=== PATIENT | female | born 1990 | race Caucasian/White ===

== ENCOUNTER 2019-10-25 01:12 | Inpatient (IN) | payer OTHER ==
[2019-10-25] MEDS ORDERED: Sodium Chloride 0.9% 2.5 ML Syringe FLUSH PRN ×2 (01:33→09:49)
[2019-10-25] MEDS ORDERED: Misoprostol 200 MCG Tab PO PRN (01:33)
[2019-10-25] MEDS ORDERED: Water For Irrigation,Sterile 1,000 ML Container IRR PRN (01:33)
[2019-10-25] MEDS ORDERED: Butorphanol 1 MG/ML SDV IVPUSH PRN (01:33)
[2019-10-25] MEDS ORDERED: Methylergonovine 0.2 MG/1 ML Amp IM PRN (01:33)
[2019-10-25] MEDS ORDERED: Sodium Chloride 0.9% 10 ML Syringe FLUSH PRN ×2 (01:33→09:49)
[2019-10-25] MEDS ORDERED: Lidocaine 1% 50 ML MDV INJECT PRN (01:33)
[2019-10-25] MEDS ORDERED: Ondansetron 4 MG/2 ML SDV IVPUSH PRN (01:33)
[2019-10-25] MEDS ORDERED: Nalbuphine 10 MG/1 ML Vial IVPUSH PRN (01:33)
[2019-10-25] MEDS ORDERED: Carboprost Tromethamine 250 MCG/1 ML Amp IM PRN (01:33)
[2019-10-25] MEDS ORDERED: Sodium Chloride 0.9% 10 ML SDV IV PRN ×2 (01:33→09:49)
[2019-10-25] MEDS ORDERED: Tranexamic Acid 1,000 MG in Sodium Chloride 0.9% 100 ML IV PRN (01:33)
[2019-10-25] MEDS ORDERED: Lactated Ringers 1,000 ML IV SCH (01:45)
[2019-10-25] MEDS ORDERED: Oxytocin/0.9 % Sodium Chloride 30 UNIT/500 ML BAG IV SCH ×2 (01:45→03:45)
[2019-10-25] MEDS ORDERED: Bupivicaine/fentaNYL/NS 250 ML ONE (03:03)
--- NOTE | 2019-10-25 03:53 | PCM.PREANE ---
Preanesthetic Assessment - Procedure Proposed Procedure: Continuous Labor Epidural - Anesthesia/Transfusion/Family Hx Anesthesia History: Prior Anesthesia Without Reaction Transfusion History: No Prior Transfusion(s) - Review of Systems General: No Symptoms Pulmonary: No Symptoms Cardiovascular: No Symptoms Gastrointestinal: No Symptoms Neurological: No Symptoms Other: Reports: None - Physical Assessment Height: 5 ft 9 in Weight: 113.398 kg ASA Class: 2 Mental Status: Alert & Oriented x3 Airway Class: Mallampati = 1 Dentition: Reports: Normal Dentition Thyro-Mental Finger Breadths: 3 Mouth Opening Finger Breadths: 3 ROM/Head Extension: Full Lungs: Clear to Auscultation, Normal Respiratory Effort Cardiovascular: Regular Rate, Regular Rhythm - Lab Values: Laboratory Last Values WBC 7.00 K/uL (4.0-11.0) 10/25/19 02:00 RBC 3.92 M/uL (4.30-5.90) L 10/25/19 02:00 Hgb 11.6 g/dL (12.0-16.0) L 10/25/19 02:00 Hct 34.3 % (36.0-46.0) L 10/25/19 02:00 MCV 87.5 fL (80.0-98.0) 10/25/19 02:00 MCH 29.6 pg (27.0-32.0) 10/25/19 02:00 MCHC 33.8 g/dL (31.0-37.0) 10/25/19 02:00 RDW Std Deviation 43.7 fl (28.0-62.0) 10/25/19 02:00 RDW Coeff of Yissel 14 % (11.0-15.0) 10/25/19 02:00 Plt Count 111 K/uL (150-400) L 10/25/19 02:00 MPV 10.30 fL (7.40-12.00) 10/25/19 02:00 Nucleated RBC % 0.0 /100WBC 10/25/19 02:00 Nucleated RBCs # 0 K/uL 10/25/19 02:00 Blood Type A POSITIVE 10/25/19 02:00 Antibody Screen NEGATIVE 10/25/19 02:00 - Allergies Allergies/Adverse Reactions: Allergies Allergy/AdvReac Type Severity Reaction Status Date / Time sulfamethoxazole Allergy Hives Verified 10/25/19 01:32 [From ] trimethoprim [From ] Allergy Hives Verified 10/25/19 01:32 - Anesthesia Plan Free Text/Narrative:: Continuous Labor Epidural - Acknowledgements Anesthesia Type Planned: Epidural Pt an Appropriate Candidate for the Planned Anesthesia: Yes Alternatives and Risks of Anesthesia Discussed w Pt/Guardian: Yes Pt/Guardian Understands and Agrees with Anesthesia Plan: Yes PreAnesthesia Questionnaire HEENT History: Reports: None Cardiovascular History: Reports: None Respiratory History: Reports: None Other Gastrointestinal History: Some heartburn with Genitourinary History: Reports: None FOURTH OFFICER History: Reports: : 9 Para: 3 LMP (Approximate): Other OB/BYN History: Patient taking a Baby Aspirin 81 mg daily during this . Musculoskeletal History: Reports: None Neurological History: Reports: None Psychiatric History: Reports: None Endocrine/Metabolic History: Reports: Diabetes, Gestational Other Endocrine/Metabolic History: History of gestational Diabetes, None with this Hematologic History: Reports: None Immunologic History: Reports: None Oncologic (Cancer) History: Reports: None Dermatologic History: Reports: None - Infectious Disease History Infectious Disease History: Reports: Chicken Pox - Past Surgical History HEENT Surgical History: Reports: Oral Surgery, Tonsillectomy Other HEENT Surgeries/Procedures: wisdome teeth - SUBSTANCE USE Smoking Status *Q: Never Smoker Recreational Drug Use History: No - CURRENT (IN HOUSE) MEDS Current Meds: Current Medications Butorphanol Tartrate (Stadol) 1 mg IVPUSH Q1H PRN PRN Reason: Pain Carboprost Tromethamine (Hemabate Ds) 250 mcg IM ASDIRECTED PRN PRN Reason: Post Hemorrhage Lactated Ringer's (Ringers, Lactated) 1,000 mls @ 150 mls/hr IV ASDIRECTED MARVIN Last Admin: 10/25/19 02:43 Dose: 999 mls/hr Oxytocin/Sodium Chloride (Oxytocin 30 Unit/500 Ml-Ns) 30 unit in 500 mls @ 999 mls/hr IV TITRATE MARVIN Tranexamic Acid 1,000 mg/ (Sodium Chloride) 110 mls @ 660 mls/hr IV ONETIME PRN PRN Reason: Bleeding Lidocaine HCl (Xylocaine 1%) 50 ml INJECT ONETIME PRN PRN Reason: Laceration repair Methylergonovine Maleate (Methergine) 0.2 mg IM ASDIRECTED PRN PRN Reason: Post Hemorrhage Misoprostol (Cytotec) 200 mcg PO ONETIME PRN PRN Reason: Post Hemorrhage Nalbuphine HCl (Nubain) 10 mg IVPUSH Q1H PRN PRN Reason: Pain (severe 7-10) Ondansetron HCl (Zofran) 4 mg IVPUSH Q4H PRN PRN Reason: Nausea/Vomiting Sodium Chloride (Saline Flush) 10 ml FLUSH ASDIRECTED PRN PRN Reason: Keep Vein Open Sodium Chloride (Saline Flush) 2.5 ml FLUSH ASDIRECTED PRN PRN Reason: Keep Vein Open Sodium Chloride (Normal Saline) 10 ml IV ASDIRECTED PRN PRN Reason: IV Use Sterile Water (Sterile Water For Irrigation) 1,000 ml IRR ASDIRECTED PRN PRN Reason: delivery Discontinued Medications Fentanyl/Bupivacaine HCl (Fentanyl/Bupivacaine/Ns 2 Mcg-0.125% 250 Ml) Confirm Administered Dose 250 mls @ as directed .ROUTE .[facility] ONE Stop: 10/25/19 03:04
[2019-10-25 08:00] LABS: BLOOD UREA NITROGEN,BUN 8 mg/dL (7.0-18.0); CARBON DIOXIDE,CO2 21.2 mmol/L (21.0-32.0); CHLORIDE,CL 107 mmol/L (98-107); GLUCOSE RANDOM 118 mg/dL (74-106); POTASSIUM,K 3.2 mmol/L (3.5-5.1); SODIUM,NA 140 mmol/L (136-145)
[2019-10-25] MEDS ORDERED: Bupivacaine 0.5% 10 ML SDV ONE (08:02)
[2019-10-25] MEDS ORDERED: Calcium Gluconate 10% 1 GM/10 ML SDV IV PRN (09:49)
[2019-10-25] MEDS ORDERED: Magnesium Sulfate/Water 4 GM in Premix Bag 1 BAG IV ONE (09:49)
[2019-10-25] MEDS ORDERED: Labetalol 100 MG/20 ML MDV IVPUSH PRN (10:38)
[2019-10-25] MEDS: Magnesium Sulfate/Water 20 GM/500 ML BAG IV SCH ×2 (10:40→20:31)
[2019-10-25] MEDS ORDERED: Bisacodyl 10 MG Supp RECTAL PRN (11:10)
[2019-10-25] MEDS ORDERED: Ibuprofen 400 MG Tab PO PRN (11:10)
[2019-10-25] MEDS ORDERED: oxyCODONE 5 MG Tab PO PRN (11:10)
[2019-10-25] MEDS ORDERED: Acetaminophen 500 MG Tab PO PRN (11:10)
[2019-10-25] MEDS ORDERED: Witch Hazel Medicated Pads 40/Jar TOP PRN (11:10)
[2019-10-25] MEDS ORDERED: Lanolin 100% Cream 7 GM Tube TOP PRN (11:10)
[2019-10-25] MEDS ORDERED: Hydrocortisone 2.5% Crm 30 GM Tube TOP PRN (11:10)
[2019-10-25] MEDS ORDERED: Aluminum Hydroxide/Magnesium Hydroxide/Simethicone Susp 30 ML Cup PO PRN (11:10)
[2019-10-25] MEDS ORDERED: Benzocaine/Menthol 20%-0.5% Spray 78 GM Cannister TOP PRN (11:10)
--- NOTE | 2019-10-25 11:20 | PCM.OPNOTE ---
- General Post-Op/Procedure Note Date of Surgery/Procedure: 10/25/19 Operative Procedure(s): /1st MLL repaired Findings: Viable female APGARs 8, 9 weight 4140 gm. Spontaneous delivery intact placenta with 3V cord. True knot in cord Pre Op Diagnosis: 39/2 week IUP, SROM. HELLP syndrome Post-Op Diagnosis: Same Anesthesia Technique: Epidural Primary Surgeon: Danii Pike EBL in mLs: 300 Complications: none known Condition: Stable Free Text/Narrative:: Dictation [id number]
[2019-10-25] MEDS: Ibuprofen 800 MG Tab PO PRN ×2 (11:49→23:40)
[2019-10-25] MEDS: Acetaminophen 500 MG Tab PO PRN (16:21)
[2019-10-26] MEDS: Acetaminophen 500 MG Tab PO PRN ×2 (04:28→16:22)
[2019-10-26] MEDS: Magnesium Sulfate/Water 20 GM/500 ML BAG IV SCH (06:35)
--- NOTE | 2019-10-26 08:48 | PCM.PNPP ---
- General Info Date of Service: 10/26/19 Functional Status: Reports: Pain Controlled, Tolerating Diet, Urinating - Review of Systems General: Reports: Fatigue. Denies: Fever, Weakness Pulmonary: Denies: Shortness of Breath, Pleuritic Chest Pain Cardiovascular: Denies: Chest Pain, Palpitations, Lightheadedness Gastrointestinal: Denies: Abdominal Pain, Nausea, Vomiting Genitourinary: Denies: Flank Pain Musculoskeletal: Reports: Neck Pain (left occipital--usual region she has tension) Skin: Reports: No Symptoms Neurological: Reports: Headache (left eye pressure, left occipital--usual for her, tension). Denies: Numbness, Paresthesia, Seizure, Trouble Speaking, Difficulty Walking - General Info Date of Service: 10/26/19 - Patient Data Vital Signs - Most Recent: Last Vital Signs Temp 36.3 C 10/26/19 04:00 Pulse 76 10/26/19 04:00 Resp 16 10/26/19 04:00 BP 145/87 H 10/26/19 04:00 Pulse Ox 97 10/26/19 04:00 Weight - Most Recent: 107.547 kg I&O - Last 24 Hours: Intake & Output 10/25/19 10/26/19 10/26/19 22:59 06:59 14:59 Intake Total 720 Output Total 2800 300 Balance -2080 -300 Lab Results - Last 24 Hours: Laboratory Results - last 24 hr 10/25/19 10/25/19 10/25/19 Range/Units 10:51 11:05 14:10 WBC (4.0-11.0) K/uL RBC (4.30-5.90) M/uL Hgb (12.0-16.0) g/dL Hct (36.0-46.0) % MCV (80.0-98.0) fL MCH (27.0-32.0) pg MCHC (31.0-37.0) g/dL RDW Std Deviation (28.0-62.0) fl RDW Coeff of Yissel (11.0-15.0) % Plt Count (150-400) K/uL MPV (7.40-12.00) fL Nucleated RBC % /100WBC Nucleated RBCs # K/uL Cord ABG pH 7.180 (7.18-7.38) Cord ABG Base Excess -6 (-10--2) Cord VBG pH 7.312 (7.25-7.45) Cord VBG Base Excess -6 (-10--2) Magnesium 3.7 H (1.8-2.4) mg/dL Ur Random Creatinine 126.1 mg/dL U Random Total Protein 42.4 H (<11.9) mg/dL Protein/Creatinin Ratio 0.3 10/25/19 10/26/19 10/26/19 Range/Units 20:03 02:14 08:25 WBC 9.28 (4.0-11.0) K/uL RBC 3.97 L (4.30-5.90) M/uL Hgb 11.6 L (12.0-16.0) g/dL Hct 35.1 L (36.0-46.0) % MCV 88.4 (80.0-98.0) fL MCH 29.2 (27.0-32.0) pg MCHC 33.0 (31.0-37.0) g/dL RDW Std Deviation 45.2 (28.0-62.0) fl RDW Coeff of Yissel 14 (11.0-15.0) % Plt Count 124 L (150-400) K/uL MPV 10.10 (7.40-12.00) fL Nucleated RBC % 0.0 /100WBC Nucleated RBCs # 0 K/uL Cord ABG pH (7.18-7.38) Cord ABG Base Excess (-10--2) Cord VBG pH (7.25-7.45) Cord VBG Base Excess (-10--2) Magnesium 4.5 H 4.8 H (1.8-2.4) mg/dL Ur Random Creatinine mg/dL U Random Total Protein (<11.9) mg/dL Protein/Creatinin Ratio Med Orders - Current: Current Medications Acetaminophen (Tylenol Extra Strength) 500 mg PO Q4H PRN PRN Reason: Pain Acetaminophen (Tylenol Extra Strength) 1,000 mg PO Q4H PRN PRN Reason: Pain Last Admin: 10/26/19 04:28 Dose: 1,000 mg Al Hydroxide/Mg Hydroxide (Mag-Al Plus) 30 ml PO Q8H PRN PRN Reason: Heartburn Benzocaine/Menthol (Dermoplast Pain Relief 20%-0.5% [place]) 78 gm TOP ASDIRECTED PRN PRN Reason: Perineal Comfort Measure Last Admin: 10/25/19 19:21 Dose: 1 canister Bisacodyl (Dulcolax) 10 mg RECTAL ONETIME PRN PRN Reason: Constipation Calcium Gluconate (Calcium Gluconate) 1 gm IV ASDIRECTED PRN PRN Reason: respiratory distress Carboprost Tromethamine (Hemabate Ds) 250 mcg IM ASDIRECTED PRN PRN Reason: Post Hemorrhage Docusate Sodium (Colace) 100 mg PO BID PRN PRN Reason: Constipation Emollient Ointment (Lansinoh Hpa) 0 gm TOP ASDIRECTED PRN PRN Reason: Sore Nipples Hydrocortisone (Proctozone-Hc 2.5% Crm) 1 gm TOP 6XDAY PRN PRN Reason: Itching Last Admin: 10/25/19 19:20 Dose: 1 tube Lactated Ringer's (Ringers, Lactated) 1,000 mls @ 150 mls/hr IV ASDIRECTED MARVIN Last Admin: 10/25/19 02:43 Dose: 999 mls/hr Oxytocin/Sodium Chloride (Oxytocin 30 Unit/500 Ml-Ns) 30 unit in 500 mls @ 999 mls/hr IV TITRATE MARVIN Tranexamic Acid 1,000 mg/ (Sodium Chloride) 110 mls @ 660 mls/hr IV ONETIME PRN PRN Reason: Bleeding Oxytocin/Sodium Chloride (Oxytocin 30 Unit/500 Ml-Ns) 30 unit in 500 mls @ 2 mls/hr IV TITRATE MARVIN; Protocol Last Infusion: 10/25/19 10:52 Dose: 500 munits/min, 500 mls/hr Magnesium Sulfate (Magnesium Sulfate In Water Premix) 20 gm in 500 mls @ 50 mls /hr IV ASDIRECTED MARVIN Last Admin: 10/26/19 06:35 Dose: 2 gm/hr, 50 mls/hr Ibuprofen (Motrin) 400 mg PO Q4H PRN PRN Reason: Pain Ibuprofen (Motrin) 800 mg PO Q6H PRN PRN Reason: Pain Last Admin: 10/25/19 23:40 Dose: 800 mg Labetalol HCl (Normodyne) 20 mg IVPUSH Q10M PRN; Protocol PRN Reason: Hypertension Lidocaine HCl (Xylocaine 1%) 50 ml INJECT ONETIME PRN PRN Reason: Laceration repair Ondansetron HCl (Zofran) 4 mg IVPUSH Q4H PRN PRN Reason: Nausea/Vomiting Oxycodone HCl (Oxycodone) 5 mg PO Q2H PRN PRN Reason: Pain Sodium Chloride (Saline Flush) 10 ml FLUSH ASDIRECTED PRN PRN Reason: Keep Vein Open Sodium Chloride (Saline Flush) 2.5 ml FLUSH ASDIRECTED PRN PRN Reason: Keep Vein Open Sodium Chloride (Normal Saline) 10 ml IV ASDIRECTED PRN PRN Reason: IV Use Sodium Chloride (Saline Flush) 10 ml FLUSH ASDIRECTED PRN PRN Reason: Keep Vein Open Sodium Chloride (Saline Flush) 2.5 ml FLUSH ASDIRECTED PRN PRN Reason: Keep Vein Open Sodium Chloride (Normal Saline) 10 ml IV ASDIRECTED PRN PRN Reason: IV Use Sterile Water (Sterile Water For Irrigation) 1,000 ml IRR ASDIRECTED PRN PRN Reason: delivery Avelino Jose (Tucks) 1 pad TOP ASDIRECTED PRN PRN Reason: comfort care Last Admin: 10/25/19 19:21 Dose: 1 container Discontinued Medications Bupivacaine HCl (Sensorcaine-Mpf 0.5%) Confirm Administered Dose 10 ml .ROUTE .STK-MED ONE Stop: 10/25/19 08:03 Last Admin: 10/25/19 20:17 Dose: Not Given Butorphanol Tartrate (Stadol) 1 mg IVPUSH Q1H PRN PRN Reason: Pain Fentanyl/Bupivacaine HCl (Fentanyl/Bupivacaine/Ns 2 Mcg-0.125% 250 Ml) Confirm Administered Dose 250 mls @ as directed .ROUTE .STK-MED ONE Stop: 10/25/19 03:04 Last Admin: 10/25/19 20:17 Dose: Not Given Magnesium Sulfate 4 gm/ Premix 100 mls @ 300 mls/hr IV BOLUS ONE Stop: 10/25/19 10:08 Last Admin: 10/25/19 10:20 Dose: 300 mls/hr Methylergonovine Maleate (Methergine) 0.2 mg IM ASDIRECTED PRN PRN Reason: Post Hemorrhage Misoprostol (Cytotec) 200 mcg PO ONETIME PRN PRN Reason: Post Hemorrhage Nalbuphine HCl (Nubain) 10 mg IVPUSH Q1H PRN PRN Reason: Pain (severe 7-10) - Infant Interaction Support Person: - Recovery Exam Fundal Tone: Firm Fundal Level: 1 Fingerbreadths Below Umbilicus Fundal Placement: Midline Lochia Amount: Scant Lochia Color: Rubra/Red Perineum Description: Intact, Minimal Bruising/Swelling, Other (see below) Other Perinuem Description: 1st degree laceration Episiotomy/Laceration: Approximated Bladder Status: Voiding Urinary Elimination: Voided - Exam General: Alert, Oriented HEENT: Pupils Equal, Mucous Membr. Moist/Decker Neck: Supple Lungs: Clear to Auscultation, Normal Respiratory Effort Cardiovascular: Regular Rate, Regular Rhythm GI/Abdominal Exam: Normal Bowel Sounds, Soft. No: Guarding, Rigid Extremities: Pedal Edema (trace). No: Kd's Sign Skin: Warm, Dry, Intact Neurological: No New Focal Deficit Psy/Mental Status: Alert, Normal Affect, Normal Mood - Problem List & Annotations (1) Vaginal delivery SNOMED Code(s): 984103482 Code(s): O80 - ENCOUNTER FOR FULL-TERM UNCOMPLICATED DELIVERY Status: Acute Current Visit: Yes (2) HELLP syndrome SNOMED Code(s): 06675693 Code(s): O14.20 - HELLP SYNDROME (HELLP), UNSPECIFIED TRIMESTER Status: Acute Current Visit: Yes Qualifiers: Trimester: third trimester Qualified Code(s): O14.23 - HELLP syndrome ( HELLP), third trimester - Problem List Review Problem List Initiated/Reviewed/Updated: Yes - My Orders Last 24 Hours: My Active Orders 10/25/19 09:49 Calcium Gluconate 1 gm IV ASDIRECTED PRN Sodium Chloride 0.9% [Normal Saline] 10 ml IV ASDIRECTED PRN Sodium Chloride 0.9% [Saline Flush] 10 ml FLUSH ASDIRECTED PRN Sodium Chloride 0.9% [Saline Flush] 2.5 ml FLUSH ASDIRECTED PRN 10/25/19 09:50 Bedrest [RC] ASDIRECTED Communication Order [RC] PRN Communication Order [RC] PRN Heart Tones [RC] ASDIRECTED Height and Weight [RC] DAILY Intake and Output [RC] QSHIFT Notify Provider [RC] PRN Oxygen Therapy [RC] PRN Vital Signs [RC] ASDIRECTED Electronic Heart Tones Ext w TOCO [WOMSER] Per Unit Routine Peripheral IV Insertion Adult [OM.PC] Routine 10/25/19 09:52 Equipment to Bedside [RC] PRN Notify Provider Status Change [RC] ASDIRECTED 10/25/19 10:00 Magnesium Sulfate/Water [Magnesium Sulfate in Water Premix] 20 gm in 500 ml IV ASDIRECTED Deep Tendon Reflexes [WOMSER] Q1H 10/25/19 10:38 Labetalol [Normodyne] 20 mg IVPUSH Q10M PRN 10/25/19 11:00 Deep Tendon Reflexes [WOMSER] Q1H 10/25/19 11:10 Patient Status [ADT] Routine May Shower [RC] ASDIRECTED Notify Provider Vital Signs [RC] ASDIRECTED Up ad Ariane [RC] ASDIRECTED Vital Signs [RC] PER UNIT ROUTINE Acetaminophen [Tylenol Extra Strength] 1,000 mg PO Q4H PRN Acetaminophen [Tylenol Extra Strength] 500 mg PO Q4H PRN Alum Hydrox/Mag Hydrox/Simeth [Mag-Al Plus] 30 ml PO Q8H PRN Benzocaine/Menthol [Dermoplast Pain Relief 20%-0.5% [place]] 78 gm TOP ASDIRECTED PRN Docusate Sodium [Colace] 100 mg PO BID PRN Hydrocortisone [Proctozone-HC 2.5% Crm] 1 gm TOP 6XDAY PRN Ibuprofen [Motrin] 400 mg PO Q4H PRN Ibuprofen [Motrin] 800 mg PO Q6H PRN Lanolin [Lansinoh HPA] See Dose Instructions TOP ASDIRECTED PRN bisacodyL [Dulcolax] 10 mg RECTAL ONETIME PRN oxyCODONE 5 mg PO Q2H PRN witch Shawn [Tucks] 1 pad TOP ASDIRECTED PRN Assess Lochia [WOMSER] Per Unit Routine Assess Uterine Involution [WOMSER] Per Unit Routine Peripheral IV Discontinue [OM.PC] Routine 10/25/19 11:11 Insert Urinary Catheter [OM.PC] Stat Ice Therapy [OM.PC] Per Unit Routine Perineal Care [OM.PC] Per Unit Routine Sitz Bath [OM.PC] Per Unit Routine 10/25/19 12:00 Deep Tendon Reflexes [WOMSER] Q1 10/25/19 13:00 Deep Tendon Reflexes [WOMSER] [facility] 10/25/19 14:00 Deep Tendon Reflexes [WOMSER] [facility] 10/25/19 15:00 Deep Tendon Reflexes [WOMSER] [facility] 10/25/19 16:00 Deep Tendon Reflexes [WOMSER] [facility] 10/25/19 17:00 Deep Tendon Reflexes [WOMSER] [facility] 10/25/19 18:00 Deep Tendon Reflexes [WOMSER] [facility] 10/25/19 19:00 Deep Tendon Reflexes [WOMSER] [facility] 10/25/19 20:00 Deep Tendon Reflexes [WOMSER] [facility] 10/25/19 21:00 Deep Tendon Reflexes [WOMSER] [facility] 10/25/19 22:00 Deep Tendon Reflexes [WOMSER] [facility] 10/25/19 23:00 Deep Tendon Reflexes [WOMSER] [facility] 10/25/19 Lunch Regular Diet [DIET] 10/26/19 00:00 Deep Tendon Reflexes [WOMSER] [facility] 10/26/19 01:00 Deep Tendon Reflexes [WOMSER] [facility] 10/26/19 02:00 Deep Tendon Reflexes [WOMSER] [facility] 10/26/19 03:00 Deep Tendon Reflexes [WOMSER] [facility] 10/26/19 04:00 Deep Tendon Reflexes [WOMSER] [facility] 10/26/19 05:00 Deep Tendon Reflexes [WOMSER] [facility] 10/26/19 06:00 Deep Tendon Reflexes [WOMSER] [facility] 10/26/19 07:00 Deep Tendon Reflexes [WOMSER] [facility] 10/26/19 08:00 Deep Tendon Reflexes [WOMSER] [facility] 10/26/19 08:25 COMPREHENSIVE METABOLIC PN,CMP [CHEM] AM MAGNESIUM [CHEM] Q6H 10/26/19 09:00 Deep Tendon Reflexes [WOMSER] Q1H - Assessment Assessment:: PPD 1 status post HELLP - Plan Plan:: Await remainder of labs, platelets are improved today. Blood pressures still elevated, but not severe range. Will monitor today and determine if antihypertensive oral regimen indicated. Has good urine output/diuresis. Warm pack, ibuprofen for tension headache. Will stop magnesium once labs return and determine improving/stable.
[2019-10-26 09:04] LABS: BLOOD UREA NITROGEN,BUN 5 mg/dL (7.0-18.0); CARBON DIOXIDE,CO2 25.2 mmol/L (21.0-32.0); CHLORIDE,CL 107 mmol/L (98-107); GLUCOSE RANDOM 89 mg/dL (74-106); POTASSIUM,K 2.8 mmol/L (3.5-5.1); SODIUM,NA 142 mmol/L (136-145)
[2019-10-26] MEDS: Ibuprofen 800 MG Tab PO PRN ×2 (09:10→21:41)
--- NOTE | 2019-10-26 10:04 | OR ---
SURGEON: Danii Pike M.D. DATE OF PROCEDURE: 10/25/2019 PREOPERATIVE DIAGNOSES: 1. A 39-2/7 weeks' intrauterine . 2. Spontaneous rupture of membranes. 3. HELLP syndrome. POSTOPERATIVE DIAGNOSES: 1. A 39-2/7 weeks' intrauterine . 2. Spontaneous rupture of membranes. 3. HELLP syndrome. PROCEDURE: Spontaneous vaginal delivery, first-degree midline laceration. PRIMARY SURGEON: Danii Pike MD. ANESTHESIA: Epidural. ESTIMATED BLOOD LOSS: 300 mL. COMPLICATIONS: None known. FINDINGS: Viable female. scores 8 at one minute and 9 at five minutes. Weight of 4140 g. Spontaneous delivery, intact placenta, three-vessel cord, true knot in cord noted. DISPOSITION: The patient in PACU on magnesium recovery, in nursery. PROCEDURE DETAILS: Jordana is a 29-year-old, G9, P4-0-4-3, at 39-2/7 weeks' gestational age who presents on the printing supervisor of 10/25/2019 with spontaneous rupture of membranes. Clear fluid was noted. She is group B beta strep negative. She is admitted, routine labs were drawn, IV hydration was initiated. There was no evidence of active labor, therefore, was initiated on Pitocin augmentation. Responded nicely to this, became increasingly uncomfortable. Underwent epidural, became more comfortable. Shortly before 8 a.m., she was having some recurrent variable deceleration with a late component, therefore, Pitocin was discontinued. It was also noted that her blood pressures were elevated in the 150s over 90s, therefore, PIH labs were drawn. It was noted during the labor process, blood pressures were elevated. Labs performed. The patient was found to have platelets that were 103,000 with mildly elevated LFTs, consistent with HELLP syndrome. The patient was initiated on magnesium prophylaxis. At this point, Pitocin was not required as she continued to progress spontaneously. Shortly after 9 a.m., she was found to be 8 cm and within less than an hour progressed to complete, 100% effaced, +1 station. Upon my arrival, the patient was placed in modified dorsal lithotomy position, was prepped and draped in usual aseptic manner. Began pushing efforts, pushed readily to a +3 station. Was able to continue to push and deliver infant's head atraumatically spontaneously, followed by anterior shoulder, posterior shoulder, and remainder of the body without difficulty. Infant's oropharynx and nares were bulb suctioned. After a delay, cord was clamped x2 and cut. had been handed off to her mother with attending nursing staff at the side. Cord arterial, cord venous, cord blood sampling obtained. Light pressure was applied while the placenta was delivered spontaneously intact. Vigorous fundal uterine massage was then applied while 30 units of Pitocin was delivered in 500 mL of IV fluid. Upon inspection of cervix, vaginal sidewalls, perineum, there was found to be a first-degree midline laceration, repaired using 3-0 Vicryl in the usual fashion. Uterus remained firm. Hemostasis evident. The patient will remain on magnesium recovery. Sponge count and instrument count were correct. The patient will remain in LDRP, to nursery. JANNETTE / NIRMAL /[id number] [id number]
[2019-10-26] MEDS: Docusate Sodium 100 MG Cap PO PRN (21:42)
[2019-10-27] MEDS ORDERED: NIFEdipine 30 MG Tab.ER PO ONE (08:22)
--- NOTE | 2019-10-27 08:29 | PCM.PNPP ---
- General Info Date of Service: 10/27/19 Functional Status: Reports: Pain Controlled, Tolerating Diet, Ambulating, Urinating - Review of Systems General: Denies: Fever, Weakness, Fatigue Cardiovascular: Denies: Chest Pain, Lightheadedness Gastrointestinal: Denies: Abdominal Pain, Nausea, Vomiting Genitourinary: Denies: Flank Pain Musculoskeletal: Reports: No Symptoms Skin: Reports: No Symptoms Neurological: Reports: Headache (same left occipital tensin--improved today). Denies: Paresthesia, Seizure, Syncope, Tingling, Tremors, Difficulty Walking, Weakness Psychiatric: Reports: No Symptoms - General Info Date of Service: 10/27/19 - Patient Data Vital Signs - Most Recent: Last Vital Signs Temp 36.6 C 10/27/19 07:20 Pulse 79 10/27/19 07:20 Resp 16 10/27/19 07:20 BP 135/79 10/27/19 07:20 Pulse Ox 98 10/27/19 07:20 Weight - Most Recent: 107.547 kg I&O - Last 24 Hours: Intake & Output 10/26/19 10/27/19 10/27/19 22:59 06:59 14:59 Output Total 1100 400 Balance -1100 -400 Lab Results - Last 24 Hours: Laboratory Results - last 24 hr 10/26/19 10/26/19 10/26/19 Range/Units 08:25 08:25 08:25 WBC 9.28 (4.0-11.0) K/uL RBC 3.97 L (4.30-5.90) M/uL Hgb 11.6 L (12.0-16.0) g/dL Hct 35.1 L (36.0-46.0) % MCV 88.4 (80.0-98.0) fL MCH 29.2 (27.0-32.0) pg MCHC 33.0 (31.0-37.0) g/dL RDW Std Deviation 45.2 (28.0-62.0) fl RDW Coeff of Yissel 14 (11.0-15.0) % Plt Count 124 L (150-400) K/uL MPV 10.10 (7.40-12.00) fL Nucleated RBC % 0.0 /100WBC Nucleated RBCs # 0 K/uL Sodium 142 (136-145) mmol/L Potassium 2.8 L (3.5-5.1) mmol/L Chloride 107 (98-107) mmol/L Carbon Dioxide 25.2 (21.0-32.0) mmol/L BUN 5 L (7.0-18.0) mg/dL Creatinine 0.6 (0.6-1.0) mg/dL Est Cr Clr Drug Dosing 141.98 mL/min Estimated GFR (MDRD) > 60.0 ml/min Glucose 89 (74-106) mg/dL Calcium 7.0 L (8.5-10.1) mg/dL Magnesium 5.5 H (1.8-2.4) mg/dL Total Bilirubin 0.4 (0.2-1.0) mg/dL AST 60 H (15-37) IU/L ALT 132 H (14-63) IU/L Alkaline Phosphatase 83 (46-116) U/L Total Protein 6.0 L (6.4-8.2) g/dL Albumin 2.5 L (3.4-5.0) g/dL Globulin 3.5 (2.6-4.0) g/dL Albumin/Globulin Ratio 0.7 L (0.9-1.6) Med Orders - Current: Current Medications Acetaminophen (Tylenol Extra Strength) 500 mg PO Q4H PRN PRN Reason: Pain Acetaminophen (Tylenol Extra Strength) 1,000 mg PO Q4H PRN PRN Reason: Pain Last Admin: 10/26/19 16:22 Dose: 1,000 mg Al Hydroxide/Mg Hydroxide (Mag-Al Plus) 30 ml PO Q8H PRN PRN Reason: Heartburn Benzocaine/Menthol (Dermoplast Pain Relief 20%-0.5% [place]) 78 gm TOP ASDIRECTED PRN PRN Reason: Perineal Comfort Measure Last Admin: 10/25/19 19:21 Dose: 1 canister Bisacodyl (Dulcolax) 10 mg RECTAL ONETIME PRN PRN Reason: Constipation Calcium Gluconate (Calcium Gluconate) 1 gm IV ASDIRECTED PRN PRN Reason: respiratory distress Carboprost Tromethamine (Hemabate Ds) 250 mcg IM ASDIRECTED PRN PRN Reason: Post Hemorrhage Docusate Sodium (Colace) 100 mg PO BID PRN PRN Reason: Constipation Last Admin: 10/26/19 21:42 Dose: 100 mg Emollient Ointment (Lansinoh Hpa) 0 gm TOP ASDIRECTED PRN PRN Reason: Sore Nipples Hydrocortisone (Proctozone-Hc 2.5% Crm) 1 gm TOP 6XDAY PRN PRN Reason: Itching Last Admin: 10/25/19 19:20 Dose: 1 tube Lactated Ringer's (Ringers, Lactated) 1,000 mls @ 150 mls/hr IV ASDIRECTED MARVIN Last Admin: 10/25/19 02:43 Dose: 999 mls/hr Oxytocin/Sodium Chloride (Oxytocin 30 Unit/500 Ml-Ns) 30 unit in 500 mls @ 999 mls/hr IV TITRATE MARVIN Tranexamic Acid 1,000 mg/ (Sodium Chloride) 110 mls @ 660 mls/hr IV ONETIME PRN PRN Reason: Bleeding Oxytocin/Sodium Chloride (Oxytocin 30 Unit/500 Ml-Ns) 30 unit in 500 mls @ 2 mls/hr IV TITRATE MARVIN; Protocol Last Infusion: 10/25/19 10:52 Dose: 500 munits/min, 500 mls/hr Magnesium Sulfate (Magnesium Sulfate In Water Premix) 20 gm in 500 mls @ 50 mls /hr IV ASDIRECTED MARVIN Last Admin: 10/26/19 06:35 Dose: 2 gm/hr, 50 mls/hr Ibuprofen (Motrin) 400 mg PO Q4H PRN PRN Reason: Pain Ibuprofen (Motrin) 800 mg PO Q6H PRN PRN Reason: Pain Last Admin: 10/26/19 21:41 Dose: 800 mg Labetalol HCl (Normodyne) 20 mg IVPUSH Q10M PRN; Protocol PRN Reason: Hypertension Lidocaine HCl (Xylocaine 1%) 50 ml INJECT ONETIME PRN PRN Reason: Laceration repair Ondansetron HCl (Zofran) 4 mg IVPUSH Q4H PRN PRN Reason: Nausea/Vomiting Oxycodone HCl (Oxycodone) 5 mg PO Q2H PRN PRN Reason: Pain Sodium Chloride (Saline Flush) 10 ml FLUSH ASDIRECTED PRN PRN Reason: Keep Vein Open Sodium Chloride (Saline Flush) 2.5 ml FLUSH ASDIRECTED PRN PRN Reason: Keep Vein Open Sodium Chloride (Normal Saline) 10 ml IV ASDIRECTED PRN PRN Reason: IV Use Sodium Chloride (Saline Flush) 10 ml FLUSH ASDIRECTED PRN PRN Reason: Keep Vein Open Sodium Chloride (Saline Flush) 2.5 ml FLUSH ASDIRECTED PRN PRN Reason: Keep Vein Open Sodium Chloride (Normal Saline) 10 ml IV ASDIRECTED PRN PRN Reason: IV Use Sterile Water (Sterile Water For Irrigation) 1,000 ml IRR ASDIRECTED PRN PRN Reason: delivery Avelino Jsoe (Tucks) 1 pad TOP ASDIRECTED PRN PRN Reason: comfort care Last Admin: 10/25/19 19:21 Dose: 1 container Discontinued Medications Bupivacaine HCl (Sensorcaine-Mpf 0.5%) Confirm Administered Dose 10 ml .ROUTE .STK-MED ONE Stop: 10/25/19 08:03 Last Admin: 10/25/19 20:17 Dose: Not Given Butorphanol Tartrate (Stadol) 1 mg IVPUSH Q1H PRN PRN Reason: Pain Fentanyl/Bupivacaine HCl (Fentanyl/Bupivacaine/Ns 2 Mcg-0.125% 250 Ml) Confirm Administered Dose 250 mls @ as directed .ROUTE .STK-MED ONE Stop: 10/25/19 03:04 Last Admin: 10/25/19 20:17 Dose: Not Given Magnesium Sulfate 4 gm/ Premix 100 mls @ 300 mls/hr IV BOLUS ONE Stop: 10/25/19 10:08 Last Admin: 10/25/19 10:20 Dose: 300 mls/hr Methylergonovine Maleate (Methergine) 0.2 mg IM ASDIRECTED PRN PRN Reason: Post Hemorrhage Misoprostol (Cytotec) 200 mcg PO ONETIME PRN PRN Reason: Post Hemorrhage Nalbuphine HCl (Nubain) 10 mg IVPUSH Q1H PRN PRN Reason: Pain (severe 7-10) Nifedipine (Procardia Xl) 30 mg PO ONETIME ONE PRN Reason: Nausea/Vomiting Stop: 10/27/19 08:23 - Infant Interaction Support Person: - Recovery Exam Fundal Tone: Firm Fundal Level: 1 Fingerbreadths Above Umbilicus Fundal Placement: Midline Lochia Amount: Scant Lochia Color: Rubra/Red Perineum Description: Intact, Minimal Bruising/Swelling Other Perinuem Description: 1st degree laceration Episiotomy/Laceration: Approximated Bladder Status: Voiding Urinary Elimination: Voided - Exam General: Alert, Oriented Lungs: Normal Respiratory Effort Cardiovascular: Regular Rate, Regular Rhythm GI/Abdominal Exam: Normal Bowel Sounds, Soft, Non-Tender, No Distention Extremities: Pedal Edema (trace). No: Kd's Sign Skin: Warm, Dry, Intact Neurological: No New Focal Deficit - Problem List & Annotations (1) Vaginal delivery SNOMED Code(s): 178642640 Code(s): O80 - ENCOUNTER FOR FULL-TERM UNCOMPLICATED DELIVERY Status: Acute Current Visit: Yes (2) HELLP syndrome SNOMED Code(s): 44120049 Code(s): O14.20 - HELLP SYNDROME (HELLP), UNSPECIFIED TRIMESTER Status: Acute Current Visit: Yes Qualifiers: Trimester: third trimester Qualified Code(s): O14.23 - HELLP syndrome ( HELLP), third trimester - Problem List Review Problem List Initiated/Reviewed/Updated: Yes - My Orders Last 24 Hours: My Active Orders 10/26/19 08:00 Deep Tendon Reflexes [WOMSER] Q1H 10/26/19 09:00 Deep Tendon Reflexes [WOMSER] Q1H 10/27/19 08:22 Ready for Discharge [RC] PER UNIT ROUTINE - Assessment Assessment:: PPD 2 status post HELLP - Plan Plan:: Patient's blood pressures appear to be trending downward, but still labile. Will start procardia daily. PIH labs were improving, will reevaluate next week. Patient feels well and would like to go home. Allow discharge to home. Take procardia daily. Monitor BP and call if >140/90./ Follow up at [facility] next week for labs and BP check. Follow up at [facility] 6 weeks as well. Discharge instructions reviewed.
[2019-10-27] MEDS: Acetaminophen 500 MG Tab PO PRN (08:41)
[2019-10-27] MEDS: Docusate Sodium 100 MG Cap PO PRN (09:20)
== END 2019-10-27 18:20 | disposition home or self-care (01) | DRG 807 ==
LOC: MW.OBCHECK 01:12 → MW.OB 01:14 → MW.OBCHECK 01:15 → MW.OB 01:15 → UNDOADMOB 01:15 → MW.OB 01:33 → OBSVTOIN 11:10 → MW.OB 14:00
PROVIDERS: ADMIT Obstetrics & Gynecology; ATTEND Obstetrics & Gynecology
PROC: 10E0XZZ Delivery of Products of Conception, External Approach (ICD-10-PCS; principal; 2019-10-25)
PROC: 3E0R3BZ Introduction of Anesthetic Agent into Spinal Canal, Percutaneous Approach (ICD-10-PCS; 2019-10-25)
DX: O14.24 HELLP syndrome, complicating childbirth (principal); Z37.0 Single live birth; O70.0 First degree perineal laceration during delivery; Z3A.39 39 weeks gestation of pregnancy; Z88.2 Allergy status to sulfonamides
CPT/HCPCS: 36415; 51702; 59025; 59409; 80053; 82570; 82803; 83735; 84156; 84550; 85027; 86592; 86593; 86850; 86900; 86901; A9270-GY; J2590; J3475; J7120

== ENCOUNTER 2019-10-31 22:43 | Observation (INO) | payer OTHER ==
[2019-10-31] MEDS ORDERED: Labetalol 100 MG/20 ML MDV IVPUSH ONE (23:40)
--- NOTE | 2019-10-31 23:40 | CT ---
Indication: Headache with high blood pressure. Technique: Multiple contiguous axial images were obtained from the skullbase to the vertex without intravenous contrast enhancement. Please note that all CT scans at this facility use dose modulation, iterative reconstruction, and/or weight-based dosing when appropriate to reduce radiation dose to as low as reasonably achievable. Comparison: None Findings: The ventricles are symmetric and normal in size and morphology. The basal cisterns are widely patent. No intra-axial or extra-axial hemorrhage is identified. No mass, mass effect or midline shift is identified. Impression: No acute intracranial process. Please note that all CT scans at this facility use dose modulation, iterative reconstruction, and/or weight-based dosing when appropriate to reduce radiation dose to as low as reasonably achievable. Dictated by Tanisha Mckeon MD @ Oct 31 2019 11:38PM Signed by Dr. Tanisha Mckeon @ Oct 31 2019 11:40PM
[2019-11-01] MEDS: hydrALAZINE 20 MG/ML SDV IVPUSH ONE ×3 (00:13→00:27)
--- NOTE | 2019-11-01 00:42 | EDM.PDOC ---
ED HPI GENERAL MEDICAL PROBLEM - General Chief Complaint: Neuro Symptoms/Deficits Stated Complaint: RELATED ISSUES/NUMBNESS Time Seen by Provider: 10/31/19 22:44 Source of Information: Reports: Patient History Limitations: Reports: No Limitations - History of Present Illness INITIAL COMMENTS - FREE TEXT/NARRATIVE: This is a 29-year-old female presents the emergency room status post delivery 4 days ago diagnosed help syndrome preeclampsia. Patient states she has numbness to her hand and headaches. Patient states her blood pressure has been elevated patient is on nifedipine XL 60 mg at home. Takes her child is doing well patient denies fever or chills. Patient denies any bleeding Onset: Today Duration: Hour(s): (4) Location: Reports: Head, Upper Extremity, Left, Upper Extremity, Right Severity: Severe Worsens with: Reports: None Associated Symptoms: Reports: Weakness Treatments [employer]: Reports: Other (see below) (His home on nifedipine XL) - Related Data Allergies Allergy/AdvReac Type Severity Reaction Status Date / Time sulfamethoxazole Allergy Hives Verified 10/31/19 23:04 [From ] trimethoprim [From ] Allergy Hives Verified 10/31/19 23:04 Home Meds: Home Meds NIFEdipine [Nifedical XL] 60 mg PO DAILY 10/31/19 [History] Past Medical History HEENT History: Reports: None Cardiovascular History: Reports: None Other Cardiovascular History: Benign heart palpitations Respiratory History: Reports: None Other Gastrointestinal History: Some heartburn with Genitourinary History: Reports: None [employer]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 [employer] ENGINEER History: HELP Syndrome, Preclampsia Musculoskeletal History: Reports: None Neurological History: Reports: None Psychiatric History: Reports: None Endocrine/Metabolic History: Reports: Diabetes, Gestational Other Endocrine/Metabolic History: History of gestational Diabetes, None with this last Hematologic History: Reports: None Immunologic History: Reports: None Oncologic (Cancer) History: Reports: None Dermatologic History: Reports: None - Infectious Disease History Infectious Disease History: Reports: Chicken Pox - Past Surgical History HEENT Surgical History: Reports: Oral Surgery, Tonsillectomy Other HEENT Surgeries/Procedures: wisdom teeth Social & Family History - Family History Family Medical History: Noncontributory - Tobacco Use Smoking Status *Q: Never Smoker - Caffeine Use Caffeine Use: Reports: Soda - Recreational Drug Use Recreational Drug Use: No ED ROS GENERAL - Review of Systems Review Of Systems: See Below Constitutional: Reports: Weakness HEENT: Reports: No Symptoms Respiratory: Reports: No Symptoms Cardiovascular: Reports: No Symptoms Endocrine: Reports: No Symptoms GI/Abdominal: Reports: No Symptoms : Reports: No Symptoms Musculoskeletal: Reports: No Symptoms Skin: Reports: No Symptoms Neurological: Reports: Headache, Numbness, Paresthesia Psychiatric: Reports: No Symptoms Hematologic/Lymphatic: Reports: No Symptoms Immunologic: Reports: No Symptoms ED EXAM, NEURO - Physical Exam Exam: See Below Exam Limited By: No Limitations General Appearance: Alert, WD/WN, Anxious Eye Exam: Bilateral Eye: Normal Fundi, Normal Inspection Ears: Normal External Exam, Normal Canal, Normal TMs Nose: Normal Inspection, Normal Mucosa Throat/Mouth: Normal Inspection, Normal Lips, Normal Oropharynx Head Exam: Atraumatic, Normocephalic Respiratory/Chest: No Respiratory Distress, Lungs Clear, Normal Breath Sounds, No Accessory Muscle Use, Chest Non-Tender Cardiovascular: Normal Peripheral Pulses, Regular Rate, Rhythm, No Edema, No JVD , No Murmur GI/Abdominal: Normal Bowel Sounds, Soft, Non-Tender, No Distention, No Abnormal Bruit (Female) Exam: Deferred Rectal (Female) Exam: Deferred Neurological: Alert, Normal Mood/Affect, Normal Dorsiflexion, CN II-XII Intact, Normal Plantar Flexion, No Motor/Sensory Deficits Back Exam: Normal Inspection, Full Range of Motion Extremities: Normal Inspection, Normal Range of Motion, No Pedal Edema, Normal Capillary Refill Psychiatric: Normal Affect, Normal Mood Skin Exam: Warm, Dry, Intact EKG INTERPRETATION Rhythm: NSR (No acute changes on her EKG) [place]: Normal QRS: Normal ST-T: Normal QT: Normal Course - Vital Signs Last Recorded V/S: Last Vital Signs Temp 97.7 F 10/31/19 23:05 Pulse 77 10/31/19 23:05 Resp 15 11/01/19 00:32 BP 155/90 H 11/01/19 00:32 Pulse Ox 97 11/01/19 00:32 - Orders/Labs/Meds Orders: Active Orders 24 hr Category Date Time Status Chest 1V Frontal [CR] Stat Exams 10/31/19 22:59 Taken COMPREHENSIVE METABOLIC PN,CMP [CHEM] Stat Lab 10/31/19 Received Labs: Laboratory Tests 10/31/19 11/01/19 Range/Units 23:00 00:10 WBC 6.90 (4.0-11.0) K/uL RBC 4.20 L (4.30-5.90) M/uL Hgb 12.3 (12.0-16.0) g/dL Hct 37.7 (36.0-46.0) % MCV 89.8 (80.0-98.0) fL MCH 29.3 (27.0-32.0) pg MCHC 32.6 (31.0-37.0) g/dL RDW Std Deviation 44.4 (28.0-62.0) fl RDW Coeff of Yissel 14 (11.0-15.0) % Plt Count 198 (150-400) K/uL MPV 9.40 (7.40-12.00) fL Neut % (Auto) 58.6 (48.0-80.0) % Lymph % (Auto) 31.3 (16.0-40.0) % [place] % (Auto) 7.2 (0.0-15.0) % Eos % (Auto) 2.6 (0.0-7.0) % Baso % (Auto) 0.3 (0.0-1.5) % Neut # (Auto) 4.0 (1.4-5.7) K/uL Lymph # (Auto) 2.2 (0.6-2.4) K/uL [place] # (Auto) 0.5 (0.0-0.8) K/uL Eos # (Auto) 0.2 (0.0-0.7) K/uL Baso # (Auto) 0.0 (0.0-0.1) K/uL Nucleated RBC % 0.0 /100WBC Nucleated RBCs # 0 K/uL Urine Color YELLOW Urine Appearance CLEAR Urine pH 6.0 (5.0-8.0) Ur Specific [place] 1.010 (1.001-1.035) Urine Protein NEGATIVE (NEGATIVE) mg/dL Urine Glucose (UA) NEGATIVE (NEGATIVE) mg/dL Urine Ketones NEGATIVE (NEGATIVE) mg/dL Urine Occult Blood LARGE H (NEGATIVE) Urine Nitrite NEGATIVE (NEGATIVE) Urine Bilirubin NEGATIVE (NEGATIVE) Urine Urobilinogen 0.2 (<2.0) EU/dL Ur Leukocyte Esterase SMALL H (NEGATIVE) Urine RBC 0-3 (0-2/HPF) Urine WBC 2-5 (0-5/HPF) Ur Epithelial Cells RARE (NONE-FEW) Urine Bacteria RARE (NEGATIVE) Meds: Medications Discontinued Medications Generic Name Dose Route Start Last Admin Trade Name [place] PRN Reason Stop Dose Admin Hydralazine HCl 20 mg 10/31/19 23:41 11/01/19 00:27 Apresoline IVPUSH 10/31/19 23:42 10 mg ONETIME ONE Administration Labetalol HCl 20 mg 10/31/19 23:40 11/01/19 00:13 Normodyne IVPUSH 10/31/19 23:41 7.5 mg ONETIME ONE Administration Protocol Departure - Departure Time of Disposition: 00:48 Disposition: Refer to Observation Condition: Good Clinical Impression: eclampsia - Discharge Information Referrals: Samuel Portillo MD [Primary Care Provider] - Forms: ED Department Discharge Sepsis Event Note - Evaluation Sepsis Screening Result: No Definite Risk - Focused Exam Vital Signs: Vital Signs Temp Pulse Resp BP Pulse Ox 11/01/19 00:32 15 155/90 H 97 10/31/19 23:05 97.7 F 77 20 184/113 H 98 Date Exam was Performed: 11/01/19 Time Exam was Performed: 00:47 - My Orders Last 24 Hours: My Active Orders 10/31/19 COMPREHENSIVE METABOLIC PN,CMP [CHEM] Stat 10/31/19 22:59 Chest 1V Frontal [CR] Stat - Assessment/Plan Last 24 Hours: My Active Orders 10/31/19 COMPREHENSIVE METABOLIC PN,CMP [CHEM] Stat 10/31/19 22:59 Chest 1V Frontal [CR] Stat
[2019-11-01 00:50] LABS: BLOOD UREA NITROGEN,BUN 13 mg/dL (7.0-18.0); CARBON DIOXIDE,CO2 26.8 mmol/L (21.0-32.0); CHLORIDE,CL 105 mmol/L (98-107); GLUCOSE RANDOM 92 mg/dL (74-106); POTASSIUM,K 3.6 mmol/L (3.5-5.1); SODIUM,NA 142 mmol/L (136-145)
[2019-11-01] MEDS ORDERED: Sodium Chloride 0.9% 2.5 ML Syringe FLUSH PRN (01:05)
[2019-11-01] MEDS ORDERED: Sodium Chloride 0.9% 10 ML Syringe FLUSH PRN (01:05)
[2019-11-01] MEDS ORDERED: Calcium Gluconate 10% 1 GM/10 ML SDV IV PRN (01:05)
[2019-11-01] MEDS ORDERED: Sodium Chloride 0.9% 10 ML SDV IV PRN (01:05)
[2019-11-01] MEDS ORDERED: Magnesium Sulfate/Water 4 GM in Premix Bag 1 BAG IV ONE (01:05)
[2019-11-01] MEDS ORDERED: hydrALAZINE 20 MG/ML SDV IVPUSH PRN (01:21)
--- NOTE | 2019-11-01 01:40 | PCM.LDHP ---
L&D History of Present Illness - General Date of Service: 11/01/19 Admit Problem/Dx: Patient Status Order with Admit Dx/Problem 11/01/19 00:54 Admission Status [Patient Status] [ADT] Stat 11/01/19 01:05 Patient Status [ADT] Routine Admission Diagnosis/Problem Admission Diagnosis/Problem Eclampsia, condition or complication Source of Information: Patient History Limitations: Reports: No Limitations - History of Present Illness Introduction:: 29yo P4004 s/p complicated with HELLP on 10/24, patient was discharged home on Procardia 60mg XL. she states her BPs have been around 130s/80s -90s at home , however this night she noted numbness on her left arm and also parasthesia on the left side of her face , she has been having headaches in the and period. she then took her bp at home and it was 180s/110s . Patient presented to the ER with the above complains. In the ER she recieved labetalol 20 mg which was discontinued due to bradycardia noted. she then recieved hydralazine. Her BP dropped form 184/113 to 155/90. she feels much better and no longer has the numb feelings. She is ( pumping) , normal lochia. CT scan of the head done - normal PMH: Benign Arrthymia PSH: Tonsilectomy Past OBhx; X 4 ( Preclampsia in other 2 ) FSH; NAD Exam: General: NAD Chest: CTA BL CVS: s1 s2 no murmurs Abdomen; Soft , non distended , no organomegaly , no rebound or guarding Pelvic ; Deferred : Uterus - 14 weeks Reflex: Brisk for ( Right and left LL) Labs: AST:Hx 60 , 32 ALT: 132, 112 Platelet: 111 , 103 , 124 , 198 A/P 29yo P4004 with HELLP vs Preclampsia. Uncontrolled BP with some neurological symptoms ( resolved) Plan Magnessium for neuroprotection Mag check Will add Hydralazine 10mg bid to Procardial 60 XL Venodynes Clear Mag level q 4hrs LFT in am - Related Data Allergies/Adverse Reactions: Allergies Allergy/AdvReac Type Severity Reaction Status Date / Time sulfamethoxazole Allergy Hives Verified 10/31/19 23:04 [From ] trimethoprim [From ] Allergy Hives Verified 10/31/19 23:04 Home Medications: Home Meds NIFEdipine [Nifedical XL] 60 mg PO DAILY 10/31/19 [History] Past Medical History HEENT History: Reports: None Cardiovascular History: Reports: None Other Cardiovascular History: Benign heart palpitations Respiratory History: Reports: None Other Gastrointestinal History: Some heartburn with Genitourinary History: Reports: None 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 OB/BYN History: HELP Syndrome, Preclampsia Musculoskeletal History: Reports: None Neurological History: Reports: None Psychiatric History: Reports: None Endocrine/Metabolic History: Reports: Diabetes, Gestational Other Endocrine/Metabolic History: History of gestational Diabetes, None with this last Hematologic History: Reports: None Immunologic History: Reports: None Oncologic (Cancer) History: Reports: None Dermatologic History: Reports: None - Infectious Disease History Infectious Disease History: Reports: Chicken Pox - Past Surgical History HEENT Surgical History: Reports: Oral Surgery, Tonsillectomy Other HEENT Surgeries/Procedures: wisdom teeth Social & Family History - Family History Family Medical History: Noncontributory - Tobacco Use Smoking Status *Q: Never Smoker - Caffeine Use Caffeine Use: Reports: Soda - Recreational Drug Use Recreational Drug Use: No H&P Review of Systems - Review of Systems: Review Of Systems: See Below General: Reports: No Symptoms, Weight Gain HEENT: Reports: No Symptoms Pulmonary: Reports: No Symptoms Cardiovascular: Reports: No Symptoms Gastrointestinal: Reports: No Symptoms Genitourinary: Reports: No Symptoms Musculoskeletal: Reports: No Symptoms Skin: Reports: No Symptoms Psychiatric: Reports: No Symptoms Neurological: Reports: Headache, Numbness, Paresthesia Hematologic/Lymphatic: Reports: No Symptoms L&D Exam - Exam Exam: See Below - Vital Signs Vital Signs: Last Vital Signs Temp 36.5 C 10/31/19 23:05 Pulse 77 10/31/19 23:05 Resp 15 11/01/19 00:32 BP 155/90 H 11/01/19 00:32 Pulse Ox 97 11/01/19 00:32 Weight: 104.78 kg - Exam General: Alert Lungs: Clear to Auscultation, Rhonchi Cardiovascular: Regular Rate GI/Abdominal Exam: Normal Bowel Sounds Rectal Exam: Normal Exam Genitourinary: Normal external exam - Patient Data Lab Results Last 24 hrs: Laboratory Results - last 24 hr 10/31/19 11/01/19 11/01/19 Range/Units 23:00 00:10 00:10 WBC 6.90 (4.0-11.0) K/uL RBC 4.20 L (4.30-5.90) M/uL Hgb 12.3 (12.0-16.0) g/dL Hct 37.7 (36.0-46.0) % MCV 89.8 (80.0-98.0) fL MCH 29.3 (27.0-32.0) pg MCHC 32.6 (31.0-37.0) g/dL RDW Std Deviation 44.4 (28.0-62.0) fl RDW Coeff of Yissel 14 (11.0-15.0) % Plt Count 198 (150-400) K/uL MPV 9.40 (7.40-12.00) fL Neut % (Auto) 58.6 (48.0-80.0) % Lymph % (Auto) 31.3 (16.0-40.0) % [place] % (Auto) 7.2 (0.0-15.0) % Eos % (Auto) 2.6 (0.0-7.0) % Baso % (Auto) 0.3 (0.0-1.5) % Neut # (Auto) 4.0 (1.4-5.7) K/uL Lymph # (Auto) 2.2 (0.6-2.4) K/uL [place] # (Auto) 0.5 (0.0-0.8) K/uL Eos # (Auto) 0.2 (0.0-0.7) K/uL Baso # (Auto) 0.0 (0.0-0.1) K/uL Nucleated RBC % 0.0 /100WBC Nucleated RBCs # 0 K/uL Sodium 142 (136-145) mmol/L Potassium 3.6 (3.5-5.1) mmol/L Chloride 105 (98-107) mmol/L Carbon Dioxide 26.8 (21.0-32.0) mmol/L BUN 13 (7.0-18.0) mg/dL Creatinine 0.8 (0.6-1.0) mg/dL Est Cr Clr Drug Dosing 106.48 mL/min Estimated GFR (MDRD) > 60.0 ml/min Glucose 92 (74-106) mg/dL Calcium 8.7 (8.5-10.1) mg/dL Total Bilirubin 0.4 (0.2-1.0) mg/dL AST 32 (15-37) IU/L ALT 113 H (14-63) IU/L Alkaline Phosphatase 70 (46-116) U/L Total Protein 6.8 (6.4-8.2) g/dL Albumin 3.3 L (3.4-5.0) g/dL Globulin 3.5 (2.6-4.0) g/dL Albumin/Globulin Ratio 0.9 (0.9-1.6) Urine Color YELLOW Urine Appearance CLEAR Urine pH 6.0 (5.0-8.0) Ur Specific [place] 1.010 (1.001-1.035) Urine Protein NEGATIVE (NEGATIVE) mg/dL Urine Glucose (UA) NEGATIVE (NEGATIVE) mg/dL Urine Ketones NEGATIVE (NEGATIVE) mg/dL Urine Occult Blood LARGE H (NEGATIVE) Urine Nitrite NEGATIVE (NEGATIVE) Urine Bilirubin NEGATIVE (NEGATIVE) Urine Urobilinogen 0.2 (<2.0) EU/dL Ur Leukocyte Esterase SMALL H (NEGATIVE) Urine RBC 0-3 (0-2/HPF) Urine WBC 2-5 (0-5/HPF) Ur Epithelial Cells RARE (NONE-FEW) Urine Bacteria RARE (NEGATIVE) Result Diagrams: 11/01/19 00:10 11/01/19 00:10 - Problem List (1) HELLP syndrome SNOMED Code(s): 99727395 ICD Code: O14.20 - HELLP SYNDROME (HELLP), UNSPECIFIED TRIMESTER Status: Acute Current Visit: No Qualifiers: Trimester: third trimester Qualified Code(s): O14.23 - HELLP syndrome ( HELLP), third trimester Problem List Initiated/Reviewed/Updated: Yes Orders Last 24hrs: Active Orders 24 hr Category Date Time Status Admission Status [Patient Status] [ADT] Stat ADT 11/01/19 00:54 Active Patient Status [ADT] Routine ADT 11/01/19 01:05 Active Bedrest [RC] ASDIRECTED Care 11/01/19 01:05 Active Communication Order [RC] PRN Care 11/01/19 01:05 Active Communication Order [RC] PRN Care 11/01/19 01:05 Active Equipment to Bedside [RC] PRN Care 11/01/19 01:05 Active Heart Tones [RC] ASDIRECTED Care 11/01/19 01:06 Active Height and Weight [RC] DAILY Care 11/01/19 01:05 Active Intake and Output [RC] QSHIFT Care 11/01/19 01:05 Active Notify Provider Consults [RC] ASDIRECTED Care 11/01/19 00:59 Active Notify Provider Status Change [RC] ASDIRECTED Care 11/01/19 12:00 Active Notify Provider [RC] PRN Care 11/01/19 01:05 Active Oxygen Therapy [RC] PRN Care 11/01/19 01:05 Active Vital Signs [RC] ASDIRECTED Care 11/01/19 01:05 Active Consult to Physician [CONS] Stat Cons 11/01/19 00:58 Active Chest 1V Frontal [CR] Stat Exams 10/31/19 22:59 Taken HEPATIC FUNCTION PANEL,HFP [CHEM] Routine Lab 11/01/19 09:00 Ordered MAGNESIUM [CHEM] Q6H Lab 11/01/19 00:10 Received MAGNESIUM [CHEM] Q6H Lab 11/01/19 07:15 Ordered MAGNESIUM [CHEM] Q6H Lab 11/01/19 13:15 Ordered MAGNESIUM [CHEM] Q6H Lab 11/01/19 19:15 Ordered MAGNESIUM [CHEM] Q6H Lab 11/02/19 01:15 Ordered Calcium Gluconate Med 11/01/19 01:05 Ordered 1 gm IV ASDIRECTED PRN Magnesium Sulfate/Water [Magnesium Sulfate in Water Med 11/01/19 01:15 Ordered Premix] 20 gm in 500 ml IV ASDIRECTED NIFEdipine [Procardia XL] Med 11/01/19 09:00 Ordered 60 mg PO DAILY Sodium Chloride 0.9% [Normal Saline] Med 11/01/19 01:05 Ordered 10 ml IV ASDIRECTED PRN Sodium Chloride 0.9% [Saline Flush] Med 11/01/19 01:05 Ordered 10 ml FLUSH ASDIRECTED PRN Sodium Chloride 0.9% [Saline Flush] Med 11/01/19 01:05 Ordered 2.5 ml FLUSH ASDIRECTED PRN hydrALAZINE [Apresoline] Med 11/01/19 01:21 Ordered 10 mg IVPUSH ONETIME PRN hydrALAZINE [Apresoline] Med 11/01/19 07:00 Ordered 10 mg PO Q12HR Deep Tendon Reflexes [WOMSER] [facility] Oth 11/01/19 01:15 Ordered Deep Tendon Reflexes [WOMSER] [facility] Oth 11/01/19 02:15 Ordered Deep Tendon Reflexes [WOMSER] [facility] Oth 11/01/19 03:15 Ordered Deep Tendon Reflexes [WOMSER] [facility] Ot 11/01/19 04:15 Ordered Deep Tendon Reflexes [WOMSER] [facility] Ot 11/01/19 05:15 Ordered Deep Tendon Reflexes [WOMSER] [facility] Ot 11/01/19 06:15 Ordered Deep Tendon Reflexes [WOMSER] [facility] Ot 11/01/19 07:15 Ordered Deep Tendon Reflexes [WOMSER] [facility] Ot 11/01/19 08:15 Ordered Deep Tendon Reflexes [WOMSER] [facility] Ot 11/01/19 09:15 Ordered Deep Tendon Reflexes [WOMSER] [facility] Ot 11/01/19 10:15 Ordered Deep Tendon Reflexes [WOMSER] [facility] Ot 11/01/19 11:15 Ordered Deep Tendon Reflexes [WOMSER] [facility] Ot 11/01/19 12:15 Ordered Deep Tendon Reflexes [WOMSER] [facility] Ot 11/01/19 13:15 Ordered Deep Tendon Reflexes [WOMSER] [facility] Ot 11/01/19 14:15 Ordered Deep Tendon Reflexes [WOMSER] [facility] Ot 11/01/19 15:15 Ordered Deep Tendon Reflexes [WOMSER] [facility] Oth 11/01/19 16:15 Ordered Deep Tendon Reflexes [WOMSER] [facility] Oth 11/01/19 17:15 Ordered Deep Tendon Reflexes [WOMSER] [facility] Oth 11/01/19 18:15 Ordered Deep Tendon Reflexes [WOMSER] [facility] Oth 11/01/19 19:15 Ordered Deep Tendon Reflexes [WOMSER] [facility] Oth 11/01/19 20:15 Ordered Deep Tendon Reflexes [WOMSER] [facility] Oth 11/01/19 21:15 Ordered Deep Tendon Reflexes [WOMSER] [facility] Oth 11/01/19 22:15 Ordered Deep Tendon Reflexes [WOMSER] [facility] Oth 11/01/19 23:15 Ordered Deep Tendon Reflexes [WOMSER] Q1H Oth 11/02/19 00:15 Ordered Electronic Heart Tones Ext w TOCO [WOMSER] Per Oth 11/01/19 01:05 Ordered Unit Routine Peripheral IV Insertion Adult [OM.PC] Routine Oth 11/01/19 01:05 Ordered Medication Orders Calcium Gluconate (Calcium Gluconate) 1 gm IV ASDIRECTED PRN PRN Reason: respiratory distress Hydralazine HCl (Apresoline) 10 mg PO Q12HR MARVIN Hydralazine HCl (Apresoline) 10 mg IVPUSH ONETIME PRN PRN Reason: BP Magnesium Sulfate (Magnesium Sulfate In Water Premix) 20 gm in 500 mls @ 50 mls /hr IV ASDIRECTED MARVIN; Protocol Nifedipine (Procardia Xl) 60 mg PO DAILY MARVIN Sodium Chloride (Saline Flush) 10 ml FLUSH ASDIRECTED PRN PRN Reason: Keep Vein Open Sodium Chloride (Saline Flush) 2.5 ml FLUSH ASDIRECTED PRN PRN Reason: Keep Vein Open Sodium Chloride (Normal Saline) 10 ml IV ASDIRECTED PRN PRN Reason: IV Use Assessment/Plan Comment:: see HP1
[2019-11-01] MEDS: Magnesium Sulfate/Water 20 GM/500 ML BAG IV SCH ×3 (02:50→22:43)
[2019-11-01] MEDS: hydrALAZINE 10 MG Tab PO SCH ×2 (07:32→20:27)
[2019-11-01] MEDS: Acetaminophen 500 MG Tab PO PRN ×2 (07:39→14:07)
[2019-11-01 08:38] LABS: BILIRUBIN INDIRECT 0.3
--- NOTE | 2019-11-01 09:46 | CR ---
Chest: PA view of the chest was obtained. Comparison: No prior chest x-ray. Heart size and mediastinum are normal. Lungs are clear. Bony structures are unremarkable. Impression: 1. Nothing acute is seen on PA chest x-ray. Diagnostic code #1 This report was dictated in [place] Standard Time
[2019-11-01] MEDS: NIFEdipine 30 MG Tab.ER PO SCH (09:48)
--- NOTE | 2019-11-01 10:45 | PCM.PN ---
- General Info Date of Service: 11/01/19 Admission Dx/Problem (Free Text): Patient has no neurologic symptoms this morning--no numbing, tingling or headache. Just feels tired. Denies shortness of breath. Functional Status: Reports: Pain Controlled, Tolerating Diet, Urinating - Review of Systems General: Reports: Fatigue. Denies: Fever, Weakness Pulmonary: Denies: Shortness of Breath Cardiovascular: Denies: Chest Pain, Palpitations, Lightheadedness Gastrointestinal: Denies: Abdominal Pain, Nausea, Vomiting Genitourinary: Denies: Flank Pain Musculoskeletal: Reports: No Symptoms Skin: Reports: No Symptoms Neurological: Reports: No Symptoms Psychiatric: Reports: No Symptoms - Patient Data Vitals - Most Recent: Last Vital Signs Temp 36.6 C 11/01/19 07:18 Pulse 89 11/01/19 07:18 Resp 16 11/01/19 07:18 BP 156/87 H 11/01/19 09:48 Pulse Ox 96 11/01/19 07:18 Weight - Most Recent: 102.739 kg Lab Results Last 24 Hours: Laboratory Results - last 24 hr 10/31/19 11/01/19 11/01/19 Range/Units 23:00 00:10 00:10 WBC 6.90 (4.0-11.0) K/uL RBC 4.20 L (4.30-5.90) M/uL Hgb 12.3 (12.0-16.0) g/dL Hct 37.7 (36.0-46.0) % MCV 89.8 (80.0-98.0) fL MCH 29.3 (27.0-32.0) pg MCHC 32.6 (31.0-37.0) g/dL RDW Std Deviation 44.4 (28.0-62.0) fl RDW Coeff of Yissel 14 (11.0-15.0) % Plt Count 198 (150-400) K/uL MPV 9.40 (7.40-12.00) fL Neut % (Auto) 58.6 (48.0-80.0) % Lymph % (Auto) 31.3 (16.0-40.0) % [place] % (Auto) 7.2 (0.0-15.0) % Eos % (Auto) 2.6 (0.0-7.0) % Baso % (Auto) 0.3 (0.0-1.5) % Neut # (Auto) 4.0 (1.4-5.7) K/uL Lymph # (Auto) 2.2 (0.6-2.4) K/uL [place] # (Auto) 0.5 (0.0-0.8) K/uL Eos # (Auto) 0.2 (0.0-0.7) K/uL Baso # (Auto) 0.0 (0.0-0.1) K/uL Nucleated RBC % 0.0 /100WBC Nucleated RBCs # 0 K/uL Sodium 142 (136-145) mmol/L Potassium 3.6 (3.5-5.1) mmol/L Chloride 105 (98-107) mmol/L Carbon Dioxide 26.8 (21.0-32.0) mmol/L BUN 13 (7.0-18.0) mg/dL Creatinine 0.8 (0.6-1.0) mg/dL Est Cr Clr Drug Dosing 106.48 mL/min Estimated GFR (MDRD) > 60.0 ml/min Glucose 92 (74-106) mg/dL Calcium 8.7 (8.5-10.1) mg/dL Magnesium (1.8-2.4) mg/dL Total Bilirubin 0.4 (0.2-1.0) mg/dL Direct Bilirubin (0.0-0.5) mg/dL Indirect Bilirubin AST 32 (15-37) IU/L ALT 113 H (14-63) IU/L Alkaline Phosphatase 70 (46-116) U/L Total Protein 6.8 (6.4-8.2) g/dL Albumin 3.3 L (3.4-5.0) g/dL Globulin 3.5 (2.6-4.0) g/dL Albumin/Globulin Ratio 0.9 (0.9-1.6) Urine Color YELLOW Urine Appearance CLEAR Urine pH 6.0 (5.0-8.0) Ur Specific [place] 1.010 (1.001-1.035) Urine Protein NEGATIVE (NEGATIVE) mg/dL Urine Glucose (UA) NEGATIVE (NEGATIVE) mg/dL Urine Ketones NEGATIVE (NEGATIVE) mg/dL Urine Occult Blood LARGE H (NEGATIVE) Urine Nitrite NEGATIVE (NEGATIVE) Urine Bilirubin NEGATIVE (NEGATIVE) Urine Urobilinogen 0.2 (<2.0) EU/dL Ur Leukocyte Esterase SMALL H (NEGATIVE) Urine RBC 0-3 (0-2/HPF) Urine WBC 2-5 (0-5/HPF) Ur Epithelial Cells RARE (NONE-FEW) Urine Bacteria RARE (NEGATIVE) 11/01/19 11/01/19 11/01/19 Range/Units 00:10 07:50 07:50 WBC (4.0-11.0) K/uL RBC (4.30-5.90) M/uL Hgb (12.0-16.0) g/dL Hct (36.0-46.0) % MCV (80.0-98.0) fL MCH (27.0-32.0) pg MCHC (31.0-37.0) g/dL RDW Std Deviation (28.0-62.0) fl RDW Coeff of Yissel (11.0-15.0) % Plt Count (150-400) K/uL MPV (7.40-12.00) fL Neut % (Auto) (48.0-80.0) % Lymph % (Auto) (16.0-40.0) % [place] % (Auto) (0.0-15.0) % Eos % (Auto) (0.0-7.0) % Baso % (Auto) (0.0-1.5) % Neut # (Auto) (1.4-5.7) K/uL Lymph # (Auto) (0.6-2.4) K/uL [place] # (Auto) (0.0-0.8) K/uL Eos # (Auto) (0.0-0.7) K/uL Baso # (Auto) (0.0-0.1) K/uL Nucleated RBC % /100WBC Nucleated RBCs # K/uL Sodium (136-145) mmol/L Potassium (3.5-5.1) mmol/L Chloride (98-107) mmol/L Carbon Dioxide (21.0-32.0) mmol/L BUN (7.0-18.0) mg/dL Creatinine (0.6-1.0) mg/dL Est Cr Clr Drug Dosing mL/min Estimated GFR (MDRD) ml/min Glucose (74-106) mg/dL Calcium (8.5-10.1) mg/dL Magnesium 1.7 L 4.8 H (1.8-2.4) mg/dL Total Bilirubin 0.4 (0.2-1.0) mg/dL Direct Bilirubin 0.10 (0.0-0.5) mg/dL Indirect Bilirubin 0.30 AST 32 (15-37) IU/L ALT 106 H (14-63) IU/L Alkaline Phosphatase 72 (46-116) U/L Total Protein 6.8 (6.4-8.2) g/dL Albumin 3.3 L (3.4-5.0) g/dL Globulin 3.5 (2.6-4.0) g/dL Albumin/Globulin Ratio 0.9 (0.9-1.6) Urine Color Urine Appearance Urine pH (5.0-8.0) Ur Specific [place] (1.001-1.035) Urine Protein (NEGATIVE) mg/dL Urine Glucose (UA) (NEGATIVE) mg/dL Urine Ketones (NEGATIVE) mg/dL Urine Occult Blood (NEGATIVE) Urine Nitrite (NEGATIVE) Urine Bilirubin (NEGATIVE) Urine Urobilinogen (<2.0) EU/dL Ur Leukocyte Esterase (NEGATIVE) Urine RBC (0-2/HPF) Urine WBC (0-5/HPF) Ur Epithelial Cells (NONE-FEW) Urine Bacteria (NEGATIVE) Med Orders - Current: Current Medications Acetaminophen (Tylenol Extra Strength) 1,000 mg PO Q6H PRN PRN Reason: Headache/Pain Last Admin: 11/01/19 07:39 Dose: 1,000 mg Calcium Gluconate (Calcium Gluconate) 1 gm IV ASDIRECTED PRN PRN Reason: respiratory distress Hydralazine HCl (Apresoline) 10 mg PO Q12HR MARVIN Last Admin: 11/01/19 07:32 Dose: 10 mg Hydralazine HCl (Apresoline) 10 mg IVPUSH ONETIME PRN PRN Reason: BP Magnesium Sulfate (Magnesium Sulfate In Water Premix) 20 gm in 500 mls @ 50 mls /hr IV ASDIRECTED MARVIN; Protocol Last Admin: 11/01/19 02:50 Dose: 2 gm/hr, 50 mls/hr Nifedipine (Procardia Xl) 60 mg PO DAILY MARVIN Last Admin: 11/01/19 09:48 Dose: 60 mg Sodium Chloride (Saline Flush) 10 ml FLUSH ASDIRECTED PRN PRN Reason: Keep Vein Open Sodium Chloride (Saline Flush) 2.5 ml FLUSH ASDIRECTED PRN PRN Reason: Keep Vein Open Sodium Chloride (Normal Saline) 10 ml IV ASDIRECTED PRN PRN Reason: IV Use Discontinued Medications Hydralazine HCl (Apresoline) 20 mg IVPUSH ONETIME ONE Stop: 10/31/19 23:42 Last Admin: 11/01/19 00:27 Dose: 10 mg Magnesium Sulfate 4 gm/ Premix 100 mls @ 300 mls/hr IV BOLUS ONE Stop: 11/01/19 01:24 Last Admin: 11/01/19 02:26 Dose: 300 mls/hr Labetalol HCl (Normodyne) 20 mg IVPUSH ONETIME ONE; Protocol Stop: 10/31/19 23:41 Last Admin: 11/01/19 00:13 Dose: 7.5 mg - Exam General: Alert, Oriented Lungs: Normal Respiratory Effort Cardiovascular: Regular Rate, Regular Rhythm GI/Abdominal Exam: Normal Bowel Sounds, Soft Back Exam: No: CVA Tenderness (L), CVA Tenderness (R) Extremities: Pedal Edema (1+). No: Kd's Sign Skin: Warm, Dry, Intact Neurological: No New Focal Deficit Psy/Mental Status: Alert, Normal Affect, Normal Mood Sepsis Event Note - Evaluation Sepsis Screening Result: No Definite Risk - Focused Exam Vital Signs: Vital Signs Temp Pulse Resp BP BP BP Pulse Ox 11/01/19 09:48 156/87 H 11/01/19 07:32 179/85 H 11/01/19 07:18 36.6 C 89 16 162/91 H 96 11/01/19 02:55 16 136/76 11/01/19 02:49 16 141/77 H 11/01/19 02:45 16 146/73 H 11/01/19 02:39 16 138/77 11/01/19 02:29 16 137/80 11/01/19 02:23 16 140/75 11/01/19 02:20 16 142/75 H 11/01/19 02:10 16 123/78 11/01/19 01:55 16 142/77 H 11/01/19 00:32 15 155/90 H 97 10/31/19 23:05 36.5 C 77 20 184/113 H 98 Date Exam was Performed: 11/01/19 Time Exam was Performed: 10:39 - Problem List & Annotations (1) eclampsia SNOMED Code(s): 678501467 Code(s): O15.2 - ECLAMPSIA COMPLICATING THE PUERPERIUM Status: Acute Current Visit: Yes (2) HELLP syndrome SNOMED Code(s): 17869420 Code(s): O14.20 - HELLP SYNDROME (HELLP), UNSPECIFIED TRIMESTER Status: Acute Current Visit: No Qualifiers: Trimester: third trimester Qualified Code(s): O14.23 - HELLP syndrome ( HELLP), third trimester - Problem List Review Problem List Initiated/Reviewed/Updated: Yes - My Orders Last 24 Hours: My Active Orders 11/02/19 05:00 CBC W/O DIFF,HEMOGRAM [HEME] Routine HEPATIC FUNCTION PANEL,HFP [CHEM] Routine - Assessment Assessment:: HELLP syndrome - Plan Plan:: Platelets, AST are normal. ALT trending downward. BP still intermittently elevated--but seems to be responding to the hydralazien along with procardia. Continue magnesium prophylaxis. Ideally would like to see ALT normalize prior to discontinuing magnesium, but will monitor to see what kind of a time line may be in place for this. Patient voices understanding to plan of care. Reevaluate labs in am.
[2019-11-02] MEDS: Acetaminophen 500 MG Tab PO PRN (00:40)
[2019-11-02 06:36] LABS: BILIRUBIN INDIRECT 0.3
[2019-11-02] MEDS: hydrALAZINE 10 MG Tab PO SCH ×2 (08:58→18:48)
[2019-11-02] MEDS: NIFEdipine 30 MG Tab.ER PO SCH (08:58)
[2019-11-02] MEDS: Magnesium Sulfate/Water 20 GM/500 ML BAG IV SCH (08:59)
--- NOTE | 2019-11-02 09:16 | PCM.PNPP ---
- General Info Date of Service: 11/02/19 Admission Dx/Problem (Free Text): Patient has no neurologic symptoms this morning--no numbing, tingling or headache. Denies shortness of breath. She is feeling dizzy. Functional Status: Reports: Pain Controlled, Tolerating Diet, Urinating - Review of Systems General: Denies: Fever, Weakness, Fatigue Pulmonary: Denies: Shortness of Breath Cardiovascular: Reports: Lightheadedness. Denies: Chest Pain, Palpitations Gastrointestinal: Denies: Abdominal Pain, Nausea, Vomiting Genitourinary: Denies: Flank Pain Musculoskeletal: Reports: No Symptoms Skin: Reports: No Symptoms Neurological: Reports: No Symptoms Psychiatric: Reports: No Symptoms - General Info Date of Service: 11/02/19 - Patient Data Vital Signs - Most Recent: Last Vital Signs Temp 36.2 C 11/02/19 07:25 Pulse 84 11/02/19 07:25 Resp 16 11/02/19 07:25 BP 134/70 11/02/19 08:58 Pulse Ox 99 11/02/19 07:25 Weight - Most Recent: 102.739 kg Lab Results - Last 24 Hours: Laboratory Results - last 24 hr 11/01/19 11/01/19 11/02/19 Range/Units 13:53 19:27 01:25 WBC (4.0-11.0) K/uL RBC (4.30-5.90) M/uL Hgb (12.0-16.0) g/dL Hct (36.0-46.0) % MCV (80.0-98.0) fL MCH (27.0-32.0) pg MCHC (31.0-37.0) g/dL RDW Std Deviation (28.0-62.0) fl RDW Coeff of Yissel (11.0-15.0) % Plt Count (150-400) K/uL MPV (7.40-12.00) fL Nucleated RBC % /100WBC Nucleated RBCs # K/uL Magnesium 5.4 H 6.4 H 6.5 H (1.8-2.4) mg/dL Total Bilirubin (0.2-1.0) mg/dL Direct Bilirubin (0.0-0.5) mg/dL Indirect Bilirubin AST (15-37) IU/L ALT (14-63) IU/L Alkaline Phosphatase (46-116) U/L Total Protein (6.4-8.2) g/dL Albumin (3.4-5.0) g/dL Globulin (2.6-4.0) g/dL Albumin/Globulin Ratio (0.9-1.6) 11/02/19 11/02/19 Range/Units 05:15 05:15 WBC 7.22 (4.0-11.0) K/uL RBC 4.43 (4.30-5.90) M/uL Hgb 12.9 (12.0-16.0) g/dL Hct 40.2 (36.0-46.0) % MCV 90.7 (80.0-98.0) fL MCH 29.1 (27.0-32.0) pg MCHC 32.1 (31.0-37.0) g/dL RDW Std Deviation 46.2 (28.0-62.0) fl RDW Coeff of Yissel 14 (11.0-15.0) % Plt Count 205 (150-400) K/uL MPV 9.50 (7.40-12.00) fL Nucleated RBC % 0.0 /100WBC Nucleated RBCs # 0 K/uL Magnesium (1.8-2.4) mg/dL Total Bilirubin 0.4 (0.2-1.0) mg/dL Direct Bilirubin 0.10 (0.0-0.5) mg/dL Indirect Bilirubin 0.30 AST 28 (15-37) IU/L ALT 87 H (14-63) IU/L Alkaline Phosphatase 73 (46-116) U/L Total Protein 6.8 (6.4-8.2) g/dL Albumin 3.2 L (3.4-5.0) g/dL Globulin 3.6 (2.6-4.0) g/dL Albumin/Globulin Ratio 0.9 (0.9-1.6) Med Orders - Current: Current Medications Acetaminophen (Tylenol Extra Strength) 1,000 mg PO Q6H PRN PRN Reason: Headache/Pain Last Admin: 11/02/19 00:40 Dose: 1,000 mg Calcium Gluconate (Calcium Gluconate) 1 gm IV ASDIRECTED PRN PRN Reason: respiratory distress Hydralazine HCl (Apresoline) 10 mg PO Q12HR [facility] Last Admin: 11/02/19 08:58 Dose: 10 mg Hydralazine HCl (Apresoline) 10 mg IVPUSH ONETIME PRN PRN Reason: BP Magnesium Sulfate (Magnesium Sulfate In Water Premix) 20 gm in 500 mls @ 50 mls /hr IV ASDIRECTED MARVIN; Protocol Last Titration: 11/02/19 09:09 Dose: 1 gm/hr, 25 mls/hr Nifedipine (Procardia Xl) 60 mg PO DAILY [facility] Last Admin: 11/02/19 08:58 Dose: 60 mg Sodium Chloride (Saline Flush) 10 ml FLUSH ASDIRECTED PRN PRN Reason: Keep Vein Open Sodium Chloride (Saline Flush) 2.5 ml FLUSH ASDIRECTED PRN PRN Reason: Keep Vein Open Sodium Chloride (Normal Saline) 10 ml IV ASDIRECTED PRN PRN Reason: IV Use Discontinued Medications Hydralazine HCl (Apresoline) 20 mg IVPUSH ONETIME ONE Stop: 10/31/19 23:42 Last Admin: 11/01/19 00:27 Dose: 10 mg Magnesium Sulfate 4 gm/ Premix 100 mls @ 300 mls/hr IV BOLUS ONE Stop: 11/01/19 01:24 Last Admin: 11/01/19 02:26 Dose: 300 mls/hr Labetalol HCl (Normodyne) 20 mg IVPUSH ONETIME ONE; Protocol Stop: 10/31/19 23:41 Last Admin: 11/01/19 00:13 Dose: 7.5 mg - Interaction Support Person: - Exam General: Alert, Oriented Lungs: Normal Respiratory Effort Cardiovascular: Regular Rate, Regular Rhythm GI/Abdominal Exam: Normal Bowel Sounds, Soft Extremities: Pedal Edema (trace). No: Kd's Sign Skin: Warm, Dry, Intact Neurological: No New Focal Deficit Psy/Mental Status: Alert, Normal Affect, Normal Mood - Problem List & Annotations (1) eclampsia SNOMED Code(s): 542087559 Code(s): O15.2 - ECLAMPSIA COMPLICATING THE PUERPERIUM Status: Acute Current Visit: Yes (2) HELLP syndrome SNOMED Code(s): 95265455 Code(s): O14.20 - HELLP SYNDROME (HELLP), UNSPECIFIED TRIMESTER Status: Acute Current Visit: No Qualifiers: Trimester: third trimester Qualified Code(s): O14.23 - HELLP syndrome ( HELLP), third trimester - Problem List Review Problem List Initiated/Reviewed/Updated: Yes - My Orders Last 24 Hours: My Active Orders 11/01/19 Lunch Fluid Restriction [DIET] Regular Diet [DIET] - Assessment Assessment:: HELLP syndrome - Plan Plan:: BPs are stabilizing nicely in the 130/70s. She has good urine output. Her ALT is decreasing nicely. May decrease magnesium to 1 gm/hour and reevaluate labs in the morning. Continue hydralazine and procardia orally.
[2019-11-02] MEDS ORDERED: Docusate Sodium 100 MG Cap PO PRN (20:57)
[2019-11-03] MEDS: Magnesium Sulfate/Water 20 GM/500 ML BAG IV SCH (04:13)
[2019-11-03] MEDS: hydrALAZINE 10 MG Tab PO SCH ×3 (06:23→17:41)
[2019-11-03 07:51] LABS: BILIRUBIN INDIRECT 0.4
[2019-11-03] MEDS: NIFEdipine 30 MG Tab.ER PO SCH (09:14)
--- NOTE | 2019-11-03 10:23 | PCM.PNPP ---
- General Info Date of Service: 11/03/19 Admission Dx/Problem (Free Text): Patient has no neurologic symptoms this morning--no numbing, tingling or headache. Denies shortness of breath. Blood pressures have remained 130/70s Functional Status: Reports: Pain Controlled, Tolerating Diet, Ambulating, Urinating - Review of Systems General: Denies: Fever, Weakness, Fatigue Pulmonary: Denies: Shortness of Breath Cardiovascular: Denies: Chest Pain, Palpitations, Lightheadedness Gastrointestinal: Denies: Abdominal Pain, Nausea, Vomiting Genitourinary: Denies: Flank Pain Musculoskeletal: Reports: No Symptoms Skin: Reports: No Symptoms Neurological: Reports: No Symptoms Psychiatric: Reports: No Symptoms - General Info Date of Service: 11/03/19 - Patient Data Vital Signs - Most Recent: Last Vital Signs Temp 36.4 C 11/03/19 07:33 Pulse 81 11/03/19 07:33 Resp 16 11/03/19 07:33 BP 137/78 11/03/19 09:14 Pulse Ox 97 11/03/19 07:33 Weight - Most Recent: 100.783 kg I&O - Last 24 Hours: Intake & Output 11/02/19 11/03/19 11/03/19 22:59 06:59 14:59 Intake Total 1060 Output Total 275 840 Balance -275 220 Lab Results - Last 24 Hours: Laboratory Results - last 24 hr 11/02/19 11/03/19 11/03/19 Range/Units 19:47 01:05 07:20 WBC 6.81 (4.0-11.0) K/uL RBC 4.58 (4.30-5.90) M/uL Hgb 13.5 (12.0-16.0) g/dL Hct 41.5 (36.0-46.0) % MCV 90.6 (80.0-98.0) fL MCH 29.5 (27.0-32.0) pg MCHC 32.5 (31.0-37.0) g/dL RDW Std Deviation 45.9 (28.0-62.0) fl RDW Coeff of Yissel 14 (11.0-15.0) % Plt Count 189 (150-400) K/uL MPV 9.50 (7.40-12.00) fL Nucleated RBC % 0.0 /100WBC Nucleated RBCs # 0 K/uL Magnesium 5.0 H 4.9 H (1.8-2.4) mg/dL Total Bilirubin (0.2-1.0) mg/dL Direct Bilirubin (0.0-0.5) mg/dL Indirect Bilirubin AST (15-37) IU/L ALT (14-63) IU/L Alkaline Phosphatase (46-116) U/L Total Protein (6.4-8.2) g/dL Albumin (3.4-5.0) g/dL Globulin (2.6-4.0) g/dL Albumin/Globulin Ratio (0.9-1.6) 11/03/19 11/03/19 Range/Units 07:20 07:20 WBC (4.0-11.0) K/uL RBC (4.30-5.90) M/uL Hgb (12.0-16.0) g/dL Hct (36.0-46.0) % MCV (80.0-98.0) fL MCH (27.0-32.0) pg MCHC (31.0-37.0) g/dL RDW Std Deviation (28.0-62.0) fl RDW Coeff of Yissel (11.0-15.0) % Plt Count (150-400) K/uL MPV (7.40-12.00) fL Nucleated RBC % /100WBC Nucleated RBCs # K/uL Magnesium 4.7 H (1.8-2.4) mg/dL Total Bilirubin 0.5 (0.2-1.0) mg/dL Direct Bilirubin 0.10 (0.0-0.5) mg/dL Indirect Bilirubin 0.40 AST 23 (15-37) IU/L ALT 69 H (14-63) IU/L Alkaline Phosphatase 75 (46-116) U/L Total Protein 6.8 (6.4-8.2) g/dL Albumin 3.2 L (3.4-5.0) g/dL Globulin 3.6 (2.6-4.0) g/dL Albumin/Globulin Ratio 0.9 (0.9-1.6) Med Orders - Current: Current Medications Acetaminophen (Tylenol Extra Strength) 1,000 mg PO Q6H PRN PRN Reason: Headache/Pain Last Admin: 11/02/19 00:40 Dose: 1,000 mg Calcium Gluconate (Calcium Gluconate) 1 gm IV ASDIRECTED PRN PRN Reason: respiratory distress Docusate Sodium (Colace) 100 mg PO BID PRN PRN Reason: Constipation Last Admin: 11/02/19 21:47 Dose: 100 mg Hydralazine HCl (Apresoline) 10 mg IVPUSH ONETIME PRN PRN Reason: BP Hydralazine HCl (Apresoline) 10 mg PO Q12H [facility] Last Admin: 11/03/19 06:23 Dose: 10 mg Magnesium Sulfate (Magnesium Sulfate In Water Premix) 20 gm in 500 mls @ 50 mls /hr IV ASDIRECTED MARVIN; Protocol Last Admin: 11/03/19 04:13 Dose: 1 gm/hr, 25 mls/hr Nifedipine (Procardia Xl) 60 mg PO DAILY [facility] Last Admin: 11/03/19 09:14 Dose: 60 mg Sodium Chloride (Saline Flush) 10 ml FLUSH ASDIRECTED PRN PRN Reason: Keep Vein Open Sodium Chloride (Saline Flush) 2.5 ml FLUSH ASDIRECTED PRN PRN Reason: Keep Vein Open Sodium Chloride (Normal Saline) 10 ml IV ASDIRECTED PRN PRN Reason: IV Use Discontinued Medications Hydralazine HCl (Apresoline) 20 mg IVPUSH ONETIME ONE Stop: 10/31/19 23:42 Last Admin: 11/01/19 00:27 Dose: 10 mg Hydralazine HCl (Apresoline) 10 mg PO Q12HR [facility] Last Admin: 11/02/19 08:58 Dose: 10 mg Magnesium Sulfate 4 gm/ Premix 100 mls @ 300 mls/hr IV BOLUS ONE Stop: 11/01/19 01:24 Last Admin: 11/01/19 02:26 Dose: 300 mls/hr Labetalol HCl (Normodyne) 20 mg IVPUSH ONETIME ONE; Protocol Stop: 10/31/19 23:41 Last Admin: 11/01/19 00:13 Dose: 7.5 mg - Infant Interaction Support Person: - Exam General: Alert, Oriented Lungs: Normal Respiratory Effort Cardiovascular: Regular Rate, Regular Rhythm GI/Abdominal Exam: Normal Bowel Sounds, Soft Extremities: Pedal Edema (trace). No: Kd's Sign Skin: Warm, Dry, Intact Neurological: No New Focal Deficit Psy/Mental Status: Alert, Normal Affect, Normal Mood - Problem List & Annotations (1) eclampsia SNOMED Code(s): 580880752 Code(s): O15.2 - ECLAMPSIA COMPLICATING THE PUERPERIUM Status: Acute Current Visit: Yes (2) HELLP syndrome SNOMED Code(s): 34106156 Code(s): O14.20 - HELLP SYNDROME (HELLP), UNSPECIFIED TRIMESTER Status: Acute Current Visit: No Qualifiers: Trimester: third trimester Qualified Code(s): O14.23 - HELLP syndrome ( HELLP), third trimester - Problem List Review Problem List Initiated/Reviewed/Updated: Yes - My Orders Last 24 Hours: My Active Orders 11/02/19 20:57 Docusate Sodium [Colace] 100 mg PO BID PRN 11/03/19 04:48 Communication Order [RC] DAILY 11/04/19 05:00 CBC W/O DIFF,HEMOGRAM [HEME] Routine COMPREHENSIVE METABOLIC PN,CMP [CHEM] Routine - Assessment Assessment:: HELLP syndrome - Plan Plan:: patient continues to have stable BPs in 130/70s. ALT is down to 67. Good urine output. Will stop magnesium, continue antihypertensives and monitor BPs today. Check labs in am. If remains stable, allow discharge in am with followup at [facility] next week for BP check. Currently on procardia 60 mg xl at 9 am and hydralazine 10 mg at 6 am and 6 pm.
--- NOTE | 2019-11-03 14:27 | PCM.CONS ---
H&P History of Present Illness - General Date of Service: 11/03/19 Source of Information: Patient History Limitations: Reports: No Limitations - History of Present Illness Initial Comments - Free Text/Narative: 29-year-old female [id number] s/p with HELLP syndrome on 10/25/19. She was admitted for post- HELLP syndrome and eclampsia. Internal medicine was consulted for bigeminal PVC's noted on telemetry and intermittent palpitations. Patient's blood pressure is being treated with PO hydralazine 10 mg BID and nifedipine 60 mg qd. 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 She saw a residence life director and had work- up including holter monitor, ECHO and stress test done. Patient reports following-up with residence life director for 1 year and then was told that she no longer required any more follow-up. Patient reports feeling palpitations every now and then but has felt them on a daily basis since being admitted to hospital on . The palpitations last for a few minutes and then resolve spontaneously. She denies having any associated fevers, chills, headache, dizziness, shortness of breath, chest pain, nausea, vomiting or diarrhea. Headache Pain Score (Numeric/FACES): 2 - Related Data Allergies/Adverse Reactions: Allergies Allergy/AdvReac Type Severity Reaction Status Date / Time sulfamethoxazole Allergy Hives Verified 10/31/19 23:04 [From ] trimethoprim [From ] Allergy Hives Verified 10/31/19 23:04 Home Medications: Home Meds NIFEdipine [Nifedical XL] 60 mg PO DAILY 10/31/19 [History] Past Medical History HEENT History: Reports: None Cardiovascular History: Reports: None Other Cardiovascular History: Benign heart palpitations Respiratory History: Reports: None Other Gastrointestinal History: Some heartburn with Genitourinary History: Reports: None EYE SPECIALIST History: Reports: Other OB/BYN History: HELP Syndrome, Preclampsia Musculoskeletal History: Reports: None Neurological History: Reports: None Other Neuro History: c/o facial and arm numbness this admission Psychiatric History: Reports: None Endocrine/Metabolic History: Reports: Diabetes, Gestational Other Endocrine/Metabolic History: History of gestational Diabetes, None with this last Hematologic History: Reports: None Immunologic History: Reports: None Oncologic (Cancer) History: Reports: None Dermatologic History: Reports: None - Infectious Disease History Infectious Disease History: Reports: Chicken Pox - Past Surgical History HEENT Surgical History: Reports: Oral Surgery, Tonsillectomy Other HEENT Surgeries/Procedures: wisdom teeth Social & Family History - Family History Family Medical History: Noncontributory Cardiac: Reports: Arrhythmia, Hypertension - Tobacco Use Smoking Status *Q: Never Smoker - Caffeine Use Caffeine Use: Reports: Soda - Recreational Drug Use Recreational Drug Use: No H&P Review of Systems - Review of Systems: Review Of Systems: Comprehensive ROS is negative, except as noted in HPI. Exam - Exam Exam: See Below - Vital Signs Vital Signs: Last Vital Signs Temp 98.1 F 11/03/19 12:30 Pulse 80 11/03/19 13:55 Resp 16 11/03/19 13:55 BP 136/83 11/03/19 13:55 Pulse Ox 98 11/03/19 13:55 Weight: 222 lb 3 oz - Exam General: Alert, Oriented, Cooperative, Other (NAD) HEENT: Conjunctiva Clear, EOMI, Hearing Intact Neck: Supple, Trachea Midline Lungs: Clear to Auscultation, Normal Respiratory Effort Cardiovascular: Regular Rate, Regular Rhythm GI/Abdominal Exam: Normal Bowel Sounds, Soft Extremities: Normal Inspection, No Pedal Edema Peripheral Pulses: 2+: Radial (L), Radial (R) Skin: Warm, Dry, Intact Neurological: Cranial Nerves Intact, Normal Speech Neuro Extensive - Mental Status: Alert, Oriented x3, Normal Mood/Affect Psychiatric: Alert, Normal Affect, Normal Mood - Patient Data Lab Results Last 24 hrs: Laboratory Results - last 24 hr 11/02/19 11/03/19 11/03/19 Range/Units 19:47 01:05 07:20 WBC 6.81 (4.0-11.0) K/uL RBC 4.58 (4.30-5.90) M/uL Hgb 13.5 (12.0-16.0) g/dL Hct 41.5 (36.0-46.0) % MCV 90.6 (80.0-98.0) fL MCH 29.5 (27.0-32.0) pg MCHC 32.5 (31.0-37.0) g/dL RDW Std Deviation 45.9 (28.0-62.0) fl RDW Coeff of Yissel 14 (11.0-15.0) % Plt Count 189 (150-400) K/uL MPV 9.50 (7.40-12.00) fL Nucleated RBC % 0.0 /100WBC Nucleated RBCs # 0 K/uL Magnesium 5.0 H 4.9 H (1.8-2.4) mg/dL Total Bilirubin (0.2-1.0) mg/dL Direct Bilirubin (0.0-0.5) mg/dL Indirect Bilirubin AST (15-37) IU/L ALT (14-63) IU/L Alkaline Phosphatase (46-116) U/L Total Protein (6.4-8.2) g/dL Albumin (3.4-5.0) g/dL Globulin (2.6-4.0) g/dL Albumin/Globulin Ratio (0.9-1.6) 11/03/19 11/03/19 Range/Units 07:20 07:20 WBC (4.0-11.0) K/uL RBC (4.30-5.90) M/uL Hgb (12.0-16.0) g/dL Hct (36.0-46.0) % MCV (80.0-98.0) fL MCH (27.0-32.0) pg MCHC (31.0-37.0) g/dL RDW Std Deviation (28.0-62.0) fl RDW Coeff of Yissel (11.0-15.0) % Plt Count (150-400) K/uL MPV (7.40-12.00) fL Nucleated RBC % /100WBC Nucleated RBCs # K/uL Magnesium 4.7 H (1.8-2.4) mg/dL Total Bilirubin 0.5 (0.2-1.0) mg/dL Direct Bilirubin 0.10 (0.0-0.5) mg/dL Indirect Bilirubin 0.40 AST 23 (15-37) IU/L ALT 69 H (14-63) IU/L Alkaline Phosphatase 75 (46-116) U/L Total Protein 6.8 (6.4-8.2) g/dL Albumin 3.2 L (3.4-5.0) g/dL Globulin 3.6 (2.6-4.0) g/dL Albumin/Globulin Ratio 0.9 (0.9-1.6) Result Diagrams: 11/03/19 07:20 11/03/19 14:07 Sepsis Event Note - Evaluation Sepsis Screening Result: No Definite Risk - Focused Exam Vital Signs: Vital Signs Temp Pulse Resp BP BP Pulse Ox 11/03/19 13:55 80 16 136/83 98 11/03/19 12:30 98.1 F 16 128/80 11/03/19 12:00 84 18 154/83 H 98 11/03/19 10:00 100 16 133/77 97 11/03/19 09:14 137/78 11/03/19 09:00 85 16 137/78 98 11/03/19 08:00 80 16 132/77 95 11/03/19 07:33 97.5 F 81 16 140/78 97 11/03/19 06:23 130/75 11/03/19 06:00 87 17 130/75 99 11/03/19 05:00 88 18 129/76 99 11/03/19 04:00 97.4 F 78 18 132/78 98 11/03/19 03:00 98 17 120/71 98 Date Exam was Performed: 11/03/19 Time Exam was Performed: 20:34 Consult PN Assessment/Plan Procedures: Procedures URINE CULTURE/COLONY COUNT (03/10/19) X-RAY EXAM OF KNEE 3 (02/10/19) Problem List Initiated/Reviewed/Updated: Yes My Orders Last 24 Hours: My Active Orders 11/03/19 13:48 EKG Documentation Completion [RC] STAT 11/03/19 14:07 BASIC METABOLIC PANEL,BMP [CHEM] Stat PHOSPHORUS [CHEM] Stat TROPONIN I [CHEM] Stat TSH [CHEM] Stat Plan: Assessment and Plan: 1. Bigeminal PVC's and intermittent palpations: - Patient is hemodynamically stable and asymptomatic at this time. Keep patient on telemetry. ECHO currently pending and preliminary read showed EF of 60-65% and mild MVP. EKG showed normal sinus rhythm. TSH normal. Troponin level negative, will repeat one more troponin q3h. Will give PO calcium carbonate 2g and PO KCl 40 mEq. Repeat BMP tomorrow. Recommend zio patch and follow-up with cardiology once cleared for discharge by primary team. 2. HELLP syndrome: - Management per primary team. Hypertension being treated with nifedipine 60 mg qd and PO hydralazine 10 mg BID. Liver enzymes downtrending. 3. DVT prophylaxis: SCD's.
[2019-11-03 14:46] LABS: BLOOD UREA NITROGEN,BUN 13 mg/dL (7.0-18.0); CARBON DIOXIDE,CO2 25.2 mmol/L (21.0-32.0); CHLORIDE,CL 105 mmol/L (98-107); GLUCOSE RANDOM 135 mg/dL (74-106); POTASSIUM,K 3.5 mmol/L (3.5-5.1); SODIUM,NA 141 mmol/L (136-145)
[2019-11-03] MEDS ORDERED: Potassium Chloride 20 MEQ Tab.ER PO ONE (17:02)
[2019-11-03] MEDS ORDERED: Calcium Carbonate 500 MG Tab.Chew PO ONE (17:06)
[2019-11-03] MEDS ORDERED: NIFEdipine 30 MG Tab.ER PO ONE (23:05)
[2019-11-04] MEDS: hydrALAZINE 10 MG Tab PO SCH (05:59)
[2019-11-04 07:03] LABS: BLOOD UREA NITROGEN,BUN 12 mg/dL (7.0-18.0); CARBON DIOXIDE,CO2 25.6 mmol/L (21.0-32.0); CHLORIDE,CL 106 mmol/L (98-107); GLUCOSE RANDOM 99 mg/dL (74-106); POTASSIUM,K 3.9 mmol/L (3.5-5.1); SODIUM,NA 142 mmol/L (136-145)
[2019-11-04] MEDS ORDERED: NIFEdipine 30 MG Tab.ER PO SCH (09:00)
--- NOTE | 2019-11-04 10:34 | PCM.DCSUM1 ---
Discharge Summary - Hospital Course Free Text/Narrative:: 29yo [id number] s/p complicated with HELLP on 10/24, patient was discharged home on Procardia 60mg XL. she states her BPs have been around 130s/80s -90s at home , however this night she noted numbness on her left arm and also parasthesia on the left side of her face , she has been having headaches in the and period. she then took her bp at home and it was 180s/110s . Patient presented to the ER with the above complains. In the ER she recieved labetalol 20 mg which was discontinued due to bradycardia noted. she then recieved hydralazine. Her BP dropped form 184/113 to 155/90. she feels much better and no longer has the numb feelings. She is ( pumping) , normal lochia. CT scan of the head done - normal On admission she had elevated ALT of 69. She received mag sulfate for 24hours. She had clinical improvement with normotensive BPs and good urine output. Symptoms resolved. Hydralazine 10mg BID was added. Medicine team was consulted for bigeminy noted on telemetry, which she did have prior history and cardiology work up. She had preliminary normal echo and was not symptomatic. On 11/02, she had few severe range BPs after stopping magnesium. Procardia was increased to 90XL daily. BP remained mostly mild range after. LFTs had normalized. She was discharged home in stable condition, advised to continue daily BP checks and follow up in 1 week at [facility]. Scheduled zio patch and cardiology follow up. - Discharge Data Discharge Date: 11/04/19 Discharge Disposition: Home, Self-Care 01 Condition: Stable - Referral to Home Health Primary Care Physician: Samuel Portillo MD - Patient Summary/Data Consults: Consultations 11/01/19 00:58 Consult to Physician [CONS] Stat Recommended Follow-up Testing/Procedures: Zio patch and cardiology followup. BP check in 1 week - Patient Instructions Diet: Regular Diet as Tolerated, Low Sodium Activity: No Strenuous Activities, Rest and Relax Today Showering/Bathing: May Shower Notify Provider of: Fever, Increased Pain, Nausea and/or Vomiting Other/Special Instructions: Pelvic rest. Follow up at [facility] next week for BP check. Check BP at home once to twice daily, call if >140/90 - Discharge Plan *PRESCRIPTION DRUG MONITORING PROGRAM REVIEWED*: Not Applicable *COPY OF PRESCRIPTION DRUG MONITORING REPORT IN PATIENT BRANDY: Not Applicable Prescriptions/Med Rec: hydrALAZINE [Apresoline] 10 mg PO Q12H #60 tablet hydrALAZINE [Apresoline] 10 mg PO TID 30 Days #90 tablet NIFEdipine [Procardia XL] 90 mg PO DAILY #30 tab.er Home Medications: Home Meds NIFEdipine [Procardia XL] 90 mg PO DAILY #30 tab.er 11/04/19 [Rx] hydrALAZINE [Apresoline] 10 mg PO Q12H #60 tablet 11/04/19 [Rx] hydrALAZINE [Apresoline] 10 mg PO TID 30 Days #90 tablet 11/04/19 [Rx] Patient Handouts: Hypertension Forms: ED Department Discharge Referrals: [facility] [Outside] Alona Mathews MD [Physician] - 11/08/19 10:00 am (Appointment for Repeat Blood Pressure Check w/ Nurse) - Discharge Summary/Plan Comment DC Time >30 min.: Yes - Patient Data Vitals - Most Recent: Last Vital Signs Temp 36.4 C 11/04/19 08:06 Pulse 98 11/04/19 08:06 Resp 18 11/04/19 08:06 BP 144/78 H 11/04/19 08:51 Pulse Ox 99 11/04/19 08:06 Weight - Most Recent: 222 lb 3 oz Lab Results - Last 24 hrs: Laboratory Results - last 24 hr 11/03/19 11/03/19 11/04/19 Range/Units 14:07 17:42 06:18 WBC 6.54 (4.0-11.0) K/uL RBC 4.53 (4.30-5.90) M/uL Hgb 13.2 (12.0-16.0) g/dL Hct 41.2 (36.0-46.0) % MCV 90.9 (80.0-98.0) fL MCH 29.1 (27.0-32.0) pg MCHC 32.0 (31.0-37.0) g/dL RDW Std Deviation 45.1 (28.0-62.0) fl RDW Coeff of Yissel 14 (11.0-15.0) % Plt Count 210 (150-400) K/uL MPV 9.50 (7.40-12.00) fL Nucleated RBC % 0.0 /100WBC Nucleated RBCs # 0 K/uL Sodium 141 (136-145) mmol/L Potassium 3.5 (3.5-5.1) mmol/L Chloride 105 (98-107) mmol/L Carbon Dioxide 25.2 (21.0-32.0) mmol/L BUN 13 (7.0-18.0) mg/dL Creatinine 0.7 (0.6-1.0) mg/dL Est Cr Clr Drug Dosing 121.69 mL/min Estimated GFR (MDRD) > 60.0 ml/min Glucose 135 H (74-106) mg/dL Calcium 7.6 L (8.5-10.1) mg/dL Phosphorus 3.8 (2.6-4.7) mg/dL Magnesium (1.8-2.4) mg/dL Total Bilirubin (0.2-1.0) mg/dL AST (15-37) IU/L ALT (14-63) IU/L Alkaline Phosphatase (46-116) U/L Troponin I < 0.050 < 0.050 (0.000-0.056) ng/mL Total Protein (6.4-8.2) g/dL Albumin (3.4-5.0) g/dL Globulin (2.6-4.0) g/dL Albumin/Globulin Ratio (0.9-1.6) TSH 3rd Generation 0.48 (0.36-3.74) uIU/mL 11/04/19 Range/Units 06:18 WBC (4.0-11.0) K/uL RBC (4.30-5.90) M/uL Hgb (12.0-16.0) g/dL Hct (36.0-46.0) % MCV (80.0-98.0) fL MCH (27.0-32.0) pg MCHC (31.0-37.0) g/dL RDW Std Deviation (28.0-62.0) fl RDW Coeff of Yissel (11.0-15.0) % Plt Count (150-400) K/uL MPV (7.40-12.00) fL Nucleated RBC % /100WBC Nucleated RBCs # K/uL Sodium 142 (136-145) mmol/L Potassium 3.9 (3.5-5.1) mmol/L Chloride 106 (98-107) mmol/L Carbon Dioxide 25.6 (21.0-32.0) mmol/L BUN 12 (7.0-18.0) mg/dL Creatinine 0.6 (0.6-1.0) mg/dL Est Cr Clr Drug Dosing 141.98 mL/min Estimated GFR (MDRD) > 60.0 ml/min Glucose 99 (74-106) mg/dL Calcium 9.0 (8.5-10.1) mg/dL Phosphorus (2.6-4.7) mg/dL Magnesium 2.0 (1.8-2.4) mg/dL Total Bilirubin 0.5 (0.2-1.0) mg/dL AST 17 (15-37) IU/L ALT 54 (14-63) IU/L Alkaline Phosphatase 74 (46-116) U/L Troponin I (0.000-0.056) ng/mL Total Protein 6.9 (6.4-8.2) g/dL Albumin 3.2 L (3.4-5.0) g/dL Globulin 3.7 (2.6-4.0) g/dL Albumin/Globulin Ratio 0.9 (0.9-1.6) TSH 3rd Generation (0.36-3.74) uIU/mL Med Orders - Current: Current Medications Acetaminophen (Tylenol Extra Strength) 1,000 mg PO Q6H PRN PRN Reason: Headache/Pain Last Admin: 11/02/19 00:40 Dose: 1,000 mg Calcium Gluconate (Calcium Gluconate) 1 gm IV ASDIRECTED PRN PRN Reason: respiratory distress Docusate Sodium (Colace) 100 mg PO BID PRN PRN Reason: Constipation Last Admin: 11/02/19 21:47 Dose: 100 mg Hydralazine HCl (Apresoline) 10 mg IVPUSH ONETIME PRN PRN Reason: BP Hydralazine HCl (Apresoline) 10 mg PO Q12H [facility] Last Admin: 11/04/19 05:59 Dose: 10 mg Magnesium Sulfate (Magnesium Sulfate In Water Premix) 20 gm in 500 mls @ 50 mls /hr IV ASDIRECTED MARVIN; Protocol Last Titration: 11/03/19 10:14 Dose: 0 gm/hr, 0 mls/hr Nifedipine (Procardia Xl) 90 mg PO DAILY [facility] Last Admin: 11/04/19 08:51 Dose: 90 mg Sodium Chloride (Saline Flush) 10 ml FLUSH ASDIRECTED PRN PRN Reason: Keep Vein Open Sodium Chloride (Saline Flush) 2.5 ml FLUSH ASDIRECTED PRN PRN Reason: Keep Vein Open Sodium Chloride (Normal Saline) 10 ml IV ASDIRECTED PRN PRN Reason: IV Use Discontinued Medications Calcium Carbonate/Glycine (Tums) 1,000 mg PO ONETIME ONE Stop: 11/03/19 17:07 Last Admin: 11/03/19 17:36 Dose: 1,000 mg Hydralazine HCl (Apresoline) 20 mg IVPUSH ONETIME ONE Stop: 10/31/19 23:42 Last Admin: 11/01/19 00:27 Dose: 10 mg Hydralazine HCl (Apresoline) 10 mg PO Q12HR MAR[facility]IN Last Admin: 11/03/19 15:48 Dose: Not Given Magnesium Sulfate 4 gm/ Premix 100 mls @ 300 mls/hr IV BOLUS ONE Stop: 11/01/19 01:24 Last Admin: 11/01/19 02:26 Dose: 300 mls/hr Labetalol HCl (Normodyne) 20 mg IVPUSH ONETIME ONE; Protocol Stop: 10/31/19 23:41 Last Admin: 11/01/19 00:13 Dose: 7.5 mg Nifedipine (Procardia Xl) 60 mg PO DAILY [facility] Last Admin: 11/03/19 09:14 Dose: 60 mg Nifedipine (Procardia Xl) 30 mg PO ONETIME ONE Stop: 11/03/19 23:06 Last Admin: 11/03/19 23:29 Dose: 30 mg Potassium Chloride (Klor-Con M20) 40 meq PO ONETIME ONE Stop: 11/03/19 17:03 Last Admin: 11/03/19 17:36 Dose: 40 meq
--- NOTE | 2019-11-04 11:52 | PCM.CONSN ---
- General Info Date of Service: 11/04/19 Subjective Update: Reports feeling stressed and anxious this morning and wants to get home to see her . Tolerating oral diet well. - Patient Data Vitals - Most Recent: Last Vital Signs Temp 97.6 F 11/04/19 08:06 Pulse 98 11/04/19 08:06 Resp 18 11/04/19 08:06 BP 147/74 H 11/04/19 10:35 Pulse Ox 99 11/04/19 08:06 Weight - Most Recent: 222 lb 3 oz Lab Results Last 24 Hours: Laboratory Results - last 24 hr 11/03/19 11/03/19 11/04/19 Range/Units 14:07 17:42 06:18 WBC 6.54 (4.0-11.0) K/uL RBC 4.53 (4.30-5.90) M/uL Hgb 13.2 (12.0-16.0) g/dL Hct 41.2 (36.0-46.0) % MCV 90.9 (80.0-98.0) fL MCH 29.1 (27.0-32.0) pg MCHC 32.0 (31.0-37.0) g/dL RDW Std Deviation 45.1 (28.0-62.0) fl RDW Coeff of Yissel 14 (11.0-15.0) % Plt Count 210 (150-400) K/uL MPV 9.50 (7.40-12.00) fL Nucleated RBC % 0.0 /100WBC Nucleated RBCs # 0 K/uL Sodium 141 (136-145) mmol/L Potassium 3.5 (3.5-5.1) mmol/L Chloride 105 (98-107) mmol/L Carbon Dioxide 25.2 (21.0-32.0) mmol/L BUN 13 (7.0-18.0) mg/dL Creatinine 0.7 (0.6-1.0) mg/dL Est Cr Clr Drug Dosing 121.69 mL/min Estimated GFR (MDRD) > 60.0 ml/min Glucose 135 H (74-106) mg/dL Calcium 7.6 L (8.5-10.1) mg/dL Phosphorus 3.8 (2.6-4.7) mg/dL Magnesium (1.8-2.4) mg/dL Total Bilirubin (0.2-1.0) mg/dL AST (15-37) IU/L ALT (14-63) IU/L Alkaline Phosphatase (46-116) U/L Troponin I < 0.050 < 0.050 (0.000-0.056) ng/mL Total Protein (6.4-8.2) g/dL Albumin (3.4-5.0) g/dL Globulin (2.6-4.0) g/dL Albumin/Globulin Ratio (0.9-1.6) TSH 3rd Generation 0.48 (0.36-3.74) uIU/mL 11/04/19 Range/Units 06:18 WBC (4.0-11.0) K/uL RBC (4.30-5.90) M/uL Hgb (12.0-16.0) g/dL Hct (36.0-46.0) % MCV (80.0-98.0) fL MCH (27.0-32.0) pg MCHC (31.0-37.0) g/dL RDW Std Deviation (28.0-62.0) fl RDW Coeff of Yissel (11.0-15.0) % Plt Count (150-400) K/uL MPV (7.40-12.00) fL Nucleated RBC % /100WBC Nucleated RBCs # K/uL Sodium 142 (136-145) mmol/L Potassium 3.9 (3.5-5.1) mmol/L Chloride 106 (98-107) mmol/L Carbon Dioxide 25.6 (21.0-32.0) mmol/L BUN 12 (7.0-18.0) mg/dL Creatinine 0.6 (0.6-1.0) mg/dL Est Cr Clr Drug Dosing 141.98 mL/min Estimated GFR (MDRD) > 60.0 ml/min Glucose 99 (74-106) mg/dL Calcium 9.0 (8.5-10.1) mg/dL Phosphorus (2.6-4.7) mg/dL Magnesium 2.0 (1.8-2.4) mg/dL Total Bilirubin 0.5 (0.2-1.0) mg/dL AST 17 (15-37) IU/L ALT 54 (14-63) IU/L Alkaline Phosphatase 74 (46-116) U/L Troponin I (0.000-0.056) ng/mL Total Protein 6.9 (6.4-8.2) g/dL Albumin 3.2 L (3.4-5.0) g/dL Globulin 3.7 (2.6-4.0) g/dL Albumin/Globulin Ratio 0.9 (0.9-1.6) TSH 3rd Generation (0.36-3.74) uIU/mL Med Orders - Current: Current Medications Acetaminophen (Tylenol Extra Strength) 1,000 mg PO Q6H PRN PRN Reason: Headache/Pain Last Admin: 11/02/19 00:40 Dose: 1,000 mg Calcium Gluconate (Calcium Gluconate) 1 gm IV ASDIRECTED PRN PRN Reason: respiratory distress Docusate Sodium (Colace) 100 mg PO BID PRN PRN Reason: Constipation Last Admin: 11/02/19 21:47 Dose: 100 mg Hydralazine HCl (Apresoline) 10 mg IVPUSH ONETIME PRN PRN Reason: BP Hydralazine HCl (Apresoline) 10 mg PO Q12H [facility] Last Admin: 11/04/19 05:59 Dose: 10 mg Magnesium Sulfate (Magnesium Sulfate In Water Premix) 20 gm in 500 mls @ 50 mls /hr IV ASDIRECTED MARVIN; Protocol Last Titration: 11/03/19 10:14 Dose: 0 gm/hr, 0 mls/hr Nifedipine (Procardia Xl) 90 mg PO DAILY [facility] Last Admin: 11/04/19 08:51 Dose: 90 mg Sodium Chloride (Saline Flush) 10 ml FLUSH ASDIRECTED PRN PRN Reason: Keep Vein Open Sodium Chloride (Saline Flush) 2.5 ml FLUSH ASDIRECTED PRN PRN Reason: Keep Vein Open Sodium Chloride (Normal Saline) 10 ml IV ASDIRECTED PRN PRN Reason: IV Use Discontinued Medications Calcium Carbonate/Glycine (Tums) 1,000 mg PO ONETIME ONE Stop: 11/03/19 17:07 Last Admin: 11/03/19 17:36 Dose: 1,000 mg Hydralazine HCl (Apresoline) 20 mg IVPUSH ONETIME ONE Stop: 10/31/19 23:42 Last Admin: 11/01/19 00:27 Dose: 10 mg Hydralazine HCl (Apresoline) 10 mg PO Q12HR [facility] Last Admin: 11/03/19 15:48 Dose: Not Given Magnesium Sulfate 4 gm/ Premix 100 mls @ 300 mls/hr IV BOLUS ONE Stop: 11/01/19 01:24 Last Admin: 11/01/19 02:26 Dose: 300 mls/hr Labetalol HCl (Normodyne) 20 mg IVPUSH ONETIME ONE; Protocol Stop: 10/31/19 23:41 Last Admin: 11/01/19 00:13 Dose: 7.5 mg Nifedipine (Procardia Xl) 60 mg PO DAILY [facility] Last Admin: 11/03/19 09:14 Dose: 60 mg Nifedipine (Procardia Xl) 30 mg PO ONETIME ONE Stop: 11/03/19 23:06 Last Admin: 11/03/19 23:29 Dose: 30 mg Potassium Chloride (Klor-Con M20) 40 meq PO ONETIME ONE Stop: 11/03/19 17:03 Last Admin: 11/03/19 17:36 Dose: 40 meq - Exam General: Alert, Oriented, Cooperative, No Acute Distress Lungs: Clear to Auscultation, Normal Respiratory Effort Cardiovascular: Regular Rate, Regular Rhythm GI/Abdominal Exam: Normal Bowel Sounds, Soft, No Distention Extremities: Normal Inspection, No Pedal Edema Sepsis Event Note - Evaluation Sepsis Screening Result: No Definite Risk - Focused Exam Vital Signs: Vital Signs Temp Pulse Resp BP BP Pulse Ox 11/04/19 10:35 147/74 H 11/04/19 08:51 144/78 H 11/04/19 08:06 97.6 F 98 18 169/88 H 99 11/04/19 05:59 143/92 H 11/04/19 05:57 94 18 142/94 H 97 11/04/19 02:47 140/92 H Date Exam was Performed: 11/04/19 Time Exam was Performed: 11:54 Consult PN Assessment/Plan Procedures: Procedures URINE CULTURE/COLONY COUNT (03/10/19) X-RAY EXAM OF KNEE 3 (02/10/19) Problem List Initiated/Reviewed/Updated: Yes My Orders Last 24 Hours: My Active Orders 11/03/19 13:48 EKG Documentation Completion [RC] STAT Plan: Assessment and Plan: 1. Bigeminal PVC's and intermittent palpations: - ECHO currently pending and preliminary read showed EF of 60-65% and mild MVP. Patient's runs of bigeminy are becoming more frequent and lasting longer per telemetry. Longest run of bigeminy lasted almost 13 minutes. Contacted filters assembler Dr. Mcclure who recommended zio patch on discharge and close follow-up with cardiology within 1 week. Spent time counselling patient on importance of following-up with filters assembler for further evaluation. Patient verbalized understanding. 2. HELLP syndrome: - Management per primary team. Hypertension being treated with nifedipine 60 mg qd and PO hydralazine 10 mg BID. Liver enzymes downtrending. 3. DVT prophylaxis: SCD's.
--- NOTE | 2019-11-04 13:43 | PCM.PN ---
- General Info Date of Service: 11/04/19 Admission Dx/Problem (Free Text): 29yo admitted for preclampsia admitted for blood pressure control Patient has recieved magnessium Her LFTs are now normal She is still having BP spike Her procardia has been increased to 90mg daily , she is on hydralazine 10mg bid . Patient is also seen by Internal medicine due to Zackary , i spoke with Dr Saleh who spoke with Dr Gordon and recommend follow up in 1 week ,since patient is asymptomatic Subjective Update: as above Functional Status: Reports: Pain Controlled, Tolerating Diet, Ambulating, Urinating - Review of Systems General: Reports: No Symptoms HEENT: Reports: No Symptoms Pulmonary: Reports: No Symptoms Cardiovascular: Reports: No Symptoms Gastrointestinal: Reports: No Symptoms Genitourinary: Reports: No Symptoms Musculoskeletal: Reports: No Symptoms Skin: Reports: No Symptoms Neurological: Reports: No Symptoms Psychiatric: Reports: No Symptoms - Patient Data Vitals - Most Recent: Last Vital Signs Temp 36.4 C 11/04/19 08:06 Pulse 98 11/04/19 08:06 Resp 18 11/04/19 08:06 BP 141/73 H 11/04/19 12:00 Pulse Ox 99 11/04/19 08:06 Weight - Most Recent: 100.783 kg Lab Results Last 24 Hours: Laboratory Results - last 24 hr 11/03/19 11/03/19 11/04/19 Range/Units 14:07 17:42 06:18 WBC 6.54 (4.0-11.0) K/uL RBC 4.53 (4.30-5.90) M/uL Hgb 13.2 (12.0-16.0) g/dL Hct 41.2 (36.0-46.0) % MCV 90.9 (80.0-98.0) fL MCH 29.1 (27.0-32.0) pg MCHC 32.0 (31.0-37.0) g/dL RDW Std Deviation 45.1 (28.0-62.0) fl RDW Coeff of Yissel 14 (11.0-15.0) % Plt Count 210 (150-400) K/uL MPV 9.50 (7.40-12.00) fL Nucleated RBC % 0.0 /100WBC Nucleated RBCs # 0 K/uL Sodium 141 (136-145) mmol/L Potassium 3.5 (3.5-5.1) mmol/L Chloride 105 (98-107) mmol/L Carbon Dioxide 25.2 (21.0-32.0) mmol/L BUN 13 (7.0-18.0) mg/dL Creatinine 0.7 (0.6-1.0) mg/dL Est Cr Clr Drug Dosing 121.69 mL/min Estimated GFR (MDRD) > 60.0 ml/min Glucose 135 H (74-106) mg/dL Calcium 7.6 L (8.5-10.1) mg/dL Phosphorus 3.8 (2.6-4.7) mg/dL Magnesium (1.8-2.4) mg/dL Total Bilirubin (0.2-1.0) mg/dL AST (15-37) IU/L ALT (14-63) IU/L Alkaline Phosphatase (46-116) U/L Troponin I < 0.050 < 0.050 (0.000-0.056) ng/mL Total Protein (6.4-8.2) g/dL Albumin (3.4-5.0) g/dL Globulin (2.6-4.0) g/dL Albumin/Globulin Ratio (0.9-1.6) Triglycerides (0-200) mg/dL Cholesterol (50-200) mg/dL LDL Cholesterol, Calc (60-180) mg/dL VLDL Cholesterol (5-55) mg/dL HDL Cholesterol (40-60) mg/dL Cholesterol/HDL Ratio (3.3-6.0) TSH 3rd Generation 0.48 (0.36-3.74) uIU/mL 11/04/19 11/04/19 Range/Units 06:18 06:18 WBC (4.0-11.0) K/uL RBC (4.30-5.90) M/uL Hgb (12.0-16.0) g/dL Hct (36.0-46.0) % MCV (80.0-98.0) fL MCH (27.0-32.0) pg MCHC (31.0-37.0) g/dL RDW Std Deviation (28.0-62.0) fl RDW Coeff of Yissel (11.0-15.0) % Plt Count (150-400) K/uL MPV (7.40-12.00) fL Nucleated RBC % /100WBC Nucleated RBCs # K/uL Sodium 142 (136-145) mmol/L Potassium 3.9 (3.5-5.1) mmol/L Chloride 106 (98-107) mmol/L Carbon Dioxide 25.6 (21.0-32.0) mmol/L BUN 12 (7.0-18.0) mg/dL Creatinine 0.6 (0.6-1.0) mg/dL Est Cr Clr Drug Dosing 141.98 mL/min Estimated GFR (MDRD) > 60.0 ml/min Glucose 99 (74-106) mg/dL Calcium 9.0 (8.5-10.1) mg/dL Phosphorus (2.6-4.7) mg/dL Magnesium 2.0 (1.8-2.4) mg/dL Total Bilirubin 0.5 (0.2-1.0) mg/dL AST 17 (15-37) IU/L ALT 54 (14-63) IU/L Alkaline Phosphatase 74 (46-116) U/L Troponin I (0.000-0.056) ng/mL Total Protein 6.9 (6.4-8.2) g/dL Albumin 3.2 L (3.4-5.0) g/dL Globulin 3.7 (2.6-4.0) g/dL Albumin/Globulin Ratio 0.9 (0.9-1.6) Triglycerides 110 (0-200) mg/dL Cholesterol 277 H (50-200) mg/dL LDL Cholesterol, Calc 185 H (60-180) mg/dL VLDL Cholesterol 22 (5-55) mg/dL HDL Cholesterol 70 H (40-60) mg/dL Cholesterol/HDL Ratio 4.0 (3.3-6.0) TSH 3rd Generation (0.36-3.74) uIU/mL Med Orders - Current: Current Medications Acetaminophen (Tylenol Extra Strength) 1,000 mg PO Q6H PRN PRN Reason: Headache/Pain Last Admin: 11/02/19 00:40 Dose: 1,000 mg Calcium Gluconate (Calcium Gluconate) 1 gm IV ASDIRECTED PRN PRN Reason: respiratory distress Docusate Sodium (Colace) 100 mg PO BID PRN PRN Reason: Constipation Last Admin: 11/02/19 21:47 Dose: 100 mg Hydralazine HCl (Apresoline) 10 mg IVPUSH ONETIME PRN PRN Reason: BP Hydralazine HCl (Apresoline) 10 mg PO TID [facility] Magnesium Sulfate (Magnesium Sulfate In Water Premix) 20 gm in 500 mls @ 50 mls /hr IV ASDIRECTED [facility]; Protocol Last Titration: 11/03/19 10:14 Dose: 0 gm/hr, 0 mls/hr Nifedipine (Procardia Xl) 90 mg PO DAILY [facility] Last Admin: 11/04/19 08:51 Dose: 90 mg Sodium Chloride (Saline Flush) 10 ml FLUSH ASDIRECTED PRN PRN Reason: Keep Vein Open Sodium Chloride (Saline Flush) 2.5 ml FLUSH ASDIRECTED PRN PRN Reason: Keep Vein Open Sodium Chloride (Normal Saline) 10 ml IV ASDIRECTED PRN PRN Reason: IV Use Discontinued Medications Calcium Carbonate/Glycine (Tums) 1,000 mg PO ONETIME ONE Stop: 11/03/19 17:07 Last Admin: 11/03/19 17:36 Dose: 1,000 mg Hydralazine HCl (Apresoline) 20 mg IVPUSH ONETIME ONE Stop: 10/31/19 23:42 Last Admin: 11/01/19 00:27 Dose: 10 mg Hydralazine HCl (Apresoline) 10 mg PO Q12HR [facility] Last Admin: 11/03/19 15:48 Dose: Not Given Hydralazine HCl (Apresoline) 10 mg PO Q12H [facility] Last Admin: 11/04/19 05:59 Dose: 10 mg Magnesium Sulfate 4 gm/ Premix 100 mls @ 300 mls/hr IV BOLUS ONE Stop: 11/01/19 01:24 Last Admin: 11/01/19 02:26 Dose: 300 mls/hr Labetalol HCl (Normodyne) 20 mg IVPUSH ONETIME ONE; Protocol Stop: 10/31/19 23:41 Last Admin: 11/01/19 00:13 Dose: 7.5 mg Nifedipine (Procardia Xl) 60 mg PO DAILY [facility] Last Admin: 11/03/19 09:14 Dose: 60 mg Nifedipine (Procardia Xl) 30 mg PO ONETIME ONE Stop: 11/03/19 23:06 Last Admin: 11/03/19 23:29 Dose: 30 mg Potassium Chloride (Klor-Con M20) 40 meq PO ONETIME ONE Stop: 11/03/19 17:03 Last Admin: 11/03/19 17:36 Dose: 40 meq - Exam General: Alert HEENT: Pupils Equal Neck: Supple Lungs: Clear to Auscultation Cardiovascular: Regular Rate, Regular Rhythm GI/Abdominal Exam: Normal Bowel Sounds (Female) Exam: Normal External Exam Back Exam: Normal Inspection Extremities: Normal Inspection Sepsis Event Note - Evaluation Sepsis Screening Result: No Definite Risk - Focused Exam Vital Signs: Vital Signs Temp Pulse Resp BP BP Pulse Ox 11/04/19 12:00 141/73 H 11/04/19 10:35 147/74 H 11/04/19 08:51 144/78 H 11/04/19 08:06 36.4 C 98 18 169/88 H 99 11/04/19 05:59 143/92 H 11/04/19 05:57 94 18 142/94 H 97 11/04/19 02:47 140/92 H Date Exam was Performed: 11/04/19 Time Exam was Performed: 18:52 - Problem List & Annotations (1) HELLP syndrome SNOMED Code(s): 14270727 Code(s): O14.20 - HELLP SYNDROME (HELLP), UNSPECIFIED TRIMESTER Status: Acute Qualifiers: Trimester: third trimester Qualified Code(s): O14.23 - HELLP syndrome ( HELLP), third trimester - Problem List Review Problem List Initiated/Reviewed/Updated: Yes - My Orders Last 24 Hours: My Active Orders 11/04/19 13:34 Ready for Discharge [RC] PER UNIT ROUTINE 11/04/19 14:00 hydrALAZINE [Apresoline] 10 mg PO TID - Assessment Assessment:: 29yo admitted with Preclampsia/HELP , Bigeminis PVC and Palpitation. Labile Bps Patient is very anxious and want to go home . She has been cleared by cardiology to go home but with close follow up. I informed patient that my preference is to monitor her BP for another 24hrs since last adjustment of medication. she understands that going home at this time is suboptimal and she is at increased risk of stroke , uncontrolled bp , and readmission in less than 24hrs. she strongly believes the spikes in her BP is situational ( when Bp was drawn , after she spoke with medical team) she is confident her BP will be better at home. she is extremely tearful and want to go home to be with her family - Plan Plan:: Discharge home Patient given strict precautions on BP and signs of increased BP she should call [facility] immediately she feels headache , RUQ pain , BV , BP > 160/ 110 Patient to follow up with cardiology in 1 week BP check within 1 week
[2019-11-04] MEDS ORDERED: hydrALAZINE 10 MG Tab PO SCH (14:00)
--- NOTE | 2019-11-08 15:45 | ECHO ---
The echocardiogram report can be seen in this patient's EMR (Electronic Medical Record) in the REPORTS section. The echocardiogram report has also been scanned into PACS and can be seen there as well. TYSHAWN
== END 2019-11-04 15:25 | disposition home or self-care (01) ==
LOC: MW.ED 22:43 → MW.OB 11-01 00:54
PROVIDERS: ADMIT Obstetrics & Gynecology; ATTEND Obstetrics & Gynecology
DX: O15.2 Eclampsia complicating the puerperium (principal); O14.25 HELLP syndrome, complicating the puerperium; O99.43 Diseases of the circulatory system complicating the puerperium; I49.3 Ventricular premature depolarization; O99.345 Other mental disorders complicating the puerperium; F41.9 Anxiety disorder, unspecified; Z88.2 Allergy status to sulfonamides; Z88.1 Allergy status to other antibiotic agents; Z79.899 Other long term (current) drug therapy
CPT/HCPCS: 36415; 70450; 71045; 80048; 80053; 80061; 80076; 81001; 83735; 84100; 84443; 84484; 85025; 85027; 93005; 93306; 96365; 96366; 96375; 99285; A9270; G0378; J0360; J3475; J3490; 96374

== ENCOUNTER 2020-02-06 08:23 | Emergency (ER) | payer OTHER ==
[2020-02-06] MEDS ORDERED: Lactated Ringers 1,000 ML IV ONE (08:38)
--- NOTE | 2020-02-06 08:47 | EDM.PDOC ---
ED HPI GENERAL MEDICAL PROBLEM - General Chief Complaint: Chest Pain Stated Complaint: CHEST PAIN Time Seen by Provider: 02/06/20 08:37 Source of Information: Reports: Patient History Limitations: Reports: No Limitations - History of Present Illness INITIAL COMMENTS - FREE TEXT/NARRATIVE: 29-year-old female past medical history of recent vaginal delivery in October 2019, complicated by eclampsia and HELLP syndrome (currently on oral nifedipine) presenting with palpitations and lightheadedness. This morning, about 1 hour prior to arrival the patient was lying in bed when she developed palpitations, lightheadedness, nausea, and diaphoresis. This was not accompanied by any positional change, bowel movement, or distressing emotional event. She did not experience chest discomfort or actual syncope. She denies any recent illness, vomiting, diarrhea, or GI bleed. No history of thyroid disease. Denies leg swelling, history of VTE, pleuritic chest pain, recent travel or immobilization or surgery, history of malignancy, or hormonal medication use. She is no longer feeling lightheaded, nauseated, or diaphoretic. She does complain of a one-week history of intermittent epigastric chest pain, left sided scapular pain, and left-sided anterolateral neck pain. These complaints are not present at this time and have been intermittent for the past week. chest Pain Score (Numeric/FACES): 3 - Related Data Allergies Allergy/AdvReac Type Severity Reaction Status Date / Time labetalol Allergy Severe Bradycardia Verified 02/06/20 08:38 sulfamethoxazole Allergy Intermediate Hives Verified 02/06/20 08:38 [From ] trimethoprim [From ] Allergy Intermediate Hives Verified 02/06/20 08:38 Home Meds: Home Meds NIFEdipine [Procardia XL] 90 mg PO DAILY #30 tab.er 11/04/19 [Rx] Past Medical History HEENT History: Reports: None Cardiovascular History: Reports: None Other Cardiovascular History: Benign heart palpitations Respiratory History: Reports: None Other Gastrointestinal History: Some heartburn with Genitourinary History: Reports: None CARTRIDGE GAUGER History: Reports: Other CARTRIDGE GAUGER History: HELP Syndrome, Preclampsia Musculoskeletal History: Reports: None Neurological History: Reports: None Other Neuro History: c/o facial and arm numbness this admission Psychiatric History: Reports: None Endocrine/Metabolic History: Reports: Diabetes, Gestational Other Endocrine/Metabolic History: History of gestational Diabetes, None with this last Hematologic History: Reports: None Immunologic History: Reports: None Oncologic (Cancer) History: Reports: None Dermatologic History: Reports: None - Infectious Disease History Infectious Disease History: Reports: Chicken Pox - Past Surgical History HEENT Surgical History: Reports: Oral Surgery, Tonsillectomy Other HEENT Surgeries/Procedures: wisdom teeth Social & Family History - Family History Family Medical History: Noncontributory Cardiac: Reports: Arrhythmia, Hypertension - Caffeine Use Caffeine Use: Reports: Soda ED ROS GENERAL - Review of Systems Review Of Systems: See Below Constitutional: Reports: Diaphoresis. Denies: Fever, Chills HEENT: Reports: No Symptoms Respiratory: Denies: Shortness of Breath, Cough, Hemoptysis Cardiovascular: Reports: Lightheadedness, Palpitations. Denies: Chest Pain, Dyspnea on Exertion, Syncope Endocrine: Reports: No Symptoms GI/Abdominal: Reports: Nausea. Denies: Abdominal Pain, Black Stool, Diarrhea, Hematemesis, Hematochezia, Melena, Vomiting : Denies: Flank Pain Musculoskeletal: Denies: Back Pain Skin: Denies: Jaundice, Mottled, Pallor, Rash Neurological: Denies: Headache Psychiatric: Reports: No Symptoms Hematologic/Lymphatic: Reports: No Symptoms Immunologic: Reports: No Symptoms ED EXAM, GENERAL - Physical Exam Exam: See Below Free Text/Narrative:: Vital signs reviewed. Nursing notes reviewed. Constitutional: Awake, alert, non-distressed. Head: Normocephalic, atraumatic. Eyes: EOMI, conjunctiva normal, no discharge, no scleral icterus. Ears, Nose, Throat: External ears and nose normal, moist oral mucosa. Cardiovascular: 2+ radial pulse, capillary refill less than 2 seconds. RRR, no M/R/G Pulmonary: normal work of breathing, no accessory muscle use. CTA BL Abdomen/GI: Soft, nontender, nondistended, no guarding or rigidity, no masses. Musculoskeletal: No deformities. Integumentary: Appropriate color for ethnicity, warm, dry, no pallor or jaundice, no rash. Neurologic: Alert, answering questions appropriately, normal speech, no facial droop, moving all extremities well. Psychiatric: Appropriate mood and affect, normal thought process. EKG INTERPRETATION EKG Interpretation Comments: 12-Lead ECG Interpretation Acquired: 8:25 AM Rhythm: Sinus arrhythmia Rate: 78 bpm Spencer: Normal Intervals: Normal Ectopy: None Ischemic Changes: None apparent RV Strain: No obvious RV strain pattern. ST Segments/T-Waves: No notable changes Interpretation: Unremarkable Course - Vital Signs Text/Narrative:: 29-year-old female with palpitations, nausea, diaphoresis, lightheadedness. Patient hemodynamically stable, afebrile, well-appearing, looks nontoxic. Differential diagnosis includes but is not limited to: Arrhythmia, ectopy, acute coronary syndrome, pulmonary embolism, anemia, electrolyte disturbance, thyroid disease, volume depletion, many others CBC shows mild thrombocytopenia. Normal electrolytes and renal function. Normal hepatic function markers. Negative troponin. Normal lipase. Normal TSH. Twelve-lead EKG shows no notable ectopy and appears nonischemic. No substernal chest discomfort with nonischemic EKG and negative troponin makes myocardial ischemia unlikely. Low suspicion for pulmonary embolism: No chest pain, no extremity swelling, not tachycardic or hypoxic or tachypneic. Wells PE score 0, PERC negative. Does not appear clinically volume depleted. Monitored for 2 hours in the ED without recurrence of her palpitations, patient was feeling better. Very low risk by Turkmen syncope risk score. Plan: Given well appearance and negative work-up, patient is stable to discharge home with outpatient primary care follow-up. Strict emergency department return precautions were provided, patient indicated understanding. All questions were answered prior to departure. Discharged in good condition. Wells' Criteria for Pulmonary Embolism RESULT SUMMARY: 0.0 points Low risk group: 1.3% chance of PE in an ED population. Another study assigned scores ? 4 as PE Unlikely and had a 3% incidence of PE. INPUTS: Clinical signs and symptoms of DVT > 0 = No PE is #1 diagnosis OR equally likely > 0 = No Heart rate > 100 > 0 = No Immobilization at least 3 days OR surgery in the previous 4 weeks > 0 = No Previous, objectively diagnosed PE or DVT > 0 = No Hemoptysis > 0 = No Malignancy w/ treatment within 6 months or palliative > 0 = No PERC Rule for Pulmonary Embolism RESULT SUMMARY: 0 criteria No need for further workup, as <2% chance of PE. If no criteria are positive and clinicians pre-test probability is <15%, PERC Rule criteria are satisfied. INPUTS: Age ?50 > 0 = No HR ?100 > 0 = No O? sat on room air > 0 = No Unilateral leg swelling > 0 = No Hemoptysis > 0 = No Recent surgery or trauma > 0 = No Prior PE or DVT > 0 = No Hormone use > 0 = No Turkmen Syncope Risk Score RESULT SUMMARY: -2 points Turkmen Syncope Risk Score Very low risk 0.7% risk of 30-day serious adverse event (, arrhythmia, IA full list in Evidence) INPUTS: Predisposition to vasovagal symptoms > 0 = No Heart disease history > 0 = No sBP 180 mmHg > 0 = No Elevated troponin > 0 = No Abnormal QRS axis > 0 = No QRS duration >130 ms > 0 = No Corrected QT interval >480 ms > 0 = No ED diagnosis > -2 = Vasovagal syncope Last Recorded V/S: Last Vital Signs Temp 36.8 C 02/06/20 08:26 Pulse 90 02/06/20 08:26 Resp 18 02/06/20 08:26 BP 130/83 02/06/20 08:26 Pulse Ox 95 02/06/20 08:26 - Orders/Labs/Meds Orders: Active Orders 24 hr Category Date Time Status Cardiac Monitoring [RC] . DIRECTED Care 02/06/20 08:38 Active EKG 12 Lead [EKG Documentation Completion] [RC] STAT Care 02/06/20 08:37 Active Pulse Oximetry [RC] ASDIRECTED Care 02/06/20 08:38 Active Labs: Laboratory Tests 02/06/20 02/06/20 02/06/20 Range/Units 08:27 08:27 08:34 WBC 5.20 (4.0-11.0) K/uL RBC 4.48 (4.30-5.90) M/uL Hgb 13.1 (12.0-16.0) g/dL Hct 39.2 (36.0-46.0) % MCV 87.5 (80.0-98.0) fL MCH 29.2 (27.0-32.0) pg MCHC 33.4 (31.0-37.0) g/dL RDW Std Deviation 42.3 (28.0-62.0) fl RDW Coeff of Yissel 13 (11.0-15.0) % Plt Count 147 L (150-400) K/uL MPV 9.50 (7.40-12.00) fL Neut % (Auto) 43.7 L (48.0-80.0) % Lymph % (Auto) 47.1 H (16.0-40.0) % [place] % (Auto) 7.3 (0.0-15.0) % Eos % (Auto) 1.7 (0.0-7.0) % Baso % (Auto) 0.2 (0.0-1.5) % Neut # (Auto) 2.3 (1.4-5.7) K/uL Lymph # (Auto) 2.5 H (0.6-2.4) K/uL [place] # (Auto) 0.4 (0.0-0.8) K/uL Eos # (Auto) 0.1 (0.0-0.7) K/uL Baso # (Auto) 0.0 (0.0-0.1) K/uL Nucleated RBC % 0.0 /100WBC Nucleated RBCs # 0 K/uL Sodium 141 (136-145) mmol/L Potassium 3.6 (3.5-5.1) mmol/L Chloride 104 (98-107) mmol/L Carbon Dioxide 27.7 (21.0-32.0) mmol/L BUN 12 (7.0-18.0) mg/dL Creatinine 0.7 (0.6-1.0) mg/dL Est Cr Clr Drug Dosing 121.69 mL/min Estimated GFR (MDRD) > 60.0 ml/min Glucose 100 (74-106) mg/dL POC Glucose 83 (60-110) mg/dL Calcium 8.5 (8.5-10.1) mg/dL Total Bilirubin 0.5 (0.2-1.0) mg/dL AST 20 (15-37) IU/L ALT 52 (14-63) IU/L Alkaline Phosphatase 51 (46-116) U/L Troponin I < 0.050 (0.000-0.056) ng/mL Total Protein 7.1 (6.4-8.2) g/dL Albumin 4.2 (3.4-5.0) g/dL Globulin 2.9 (2.6-4.0) g/dL Albumin/Globulin Ratio 1.4 (0.9-1.6) Lipase 92 (73-393) U/L TSH 3rd Generation 1.16 (0.36-3.74) uIU/mL Meds: Medications Discontinued Medications Generic Name Dose Route Start Last Admin Trade Name Otis PRN Reason Stop Dose Admin Lactated Ringer's 1,000 mls @ 1,000 mls/hr 02/06/20 08:38 02/06/20 08:46 Ringers, Lactated IV 02/06/20 09:37 1,000 mls/hr .BOLUS ONE Administration Departure - Departure Time of Disposition: 10:31 Disposition: Home, Self-Care 01 Condition: Good Clinical Impression: Palpitations, Intermittent lightheadedness, Epigastric abdominal pain Instructions: Near-Syncope, Palpitations, Pain Without a Known Cause Referrals: Samuel Portillo MD [Primary Care Provider] - 3 Days (For re-evaluation.) Forms: ED Department Discharge Additional Instructions: Thank you for choosing the [facility] emergency department in [place] for your medical needs today. It was a pleasure caring for you. You were seen in the emergency department for palpitations, lightheadedness, and sweatiness. Your EKG and blood work all look reassuring. I am comfortable with you going home and following up with your primary doctor the next 2 to 3 days. Please return the emergency department immediately if your symptoms worsen or if you feel worse. The following information is given to patients seen in the emergency department who are being discharged. This information is to outline your options for follow-up care. We provide all patients seen in our emergency department with a follow-up referral. The need for follow-up, as well as the timing and circumstances, are variable depending upon the specifics of your emergency department visit. If you don't have a primary care physician on staff, we will provide you with a referral. We always advise you to contact your personal physician following an emergency department visit to inform them of the circumstance of the visit and for follow-up with them and/or the need for any referrals to a consulting specialist. The emergency department will also refer you to a specialist when appropriate. This referral assures that you have the opportunity for follow-up care with a specialist. All of these measure are taken in an effort to provide you with optimal care, which includes your follow-up. Under all circumstances we always encourage you to contact your private physician who remains a resource for coordinating your care. When calling for follow-up care, please make the office aware that this follow-up is from your recent emergency room visit. If for any reason you are refused follow-up, please contact the [facility] Emergency Department at and asked to speak to the emergency department charge nurse. If you do not have a primary care physician that is caring for you, you can con tact these clinics below to set up an appointment to establish care: [facility] - Primary Care [address] [place] [id number] [facility] [address] [place] [id number] Sepsis Event Note (ED) - Evaluation Sepsis Screening Result: No Definite Risk - Focused Exam Vital Signs: Vital Signs Temp Pulse Resp BP Pulse Ox 02/06/20 08:26 36.8 C 90 18 130/83 95 - My Orders Last 24 Hours: My Active Orders 02/06/20 08:37 EKG 12 Lead [EKG Documentation Completion] [RC] STAT 02/06/20 08:38 Cardiac Monitoring [RC] . DIRECTED Pulse Oximetry [RC] ASDIRECTED - Assessment/Plan Last 24 Hours: My Active Orders 02/06/20 08:37 EKG 12 Lead [EKG Documentation Completion] [RC] STAT 02/06/20 08:38 Cardiac Monitoring [RC] . DIRECTED Pulse Oximetry [RC] ASDIRECTED
[2020-02-06 09:14] LABS: BLOOD UREA NITROGEN,BUN 12 mg/dL (7.0-18.0); CARBON DIOXIDE,CO2 27.7 mmol/L (21.0-32.0); CHLORIDE,CL 104 mmol/L (98-107); GLUCOSE RANDOM 100 mg/dL (74-106); LIPASE 92 U/L (73-393); POTASSIUM,K 3.6 mmol/L (3.5-5.1); SODIUM,NA 141 mmol/L (136-145)
== END 2020-02-06 10:57 | disposition home or self-care (01) ==
LOC: MW.ED 08:23
DX: R00.2 Palpitations (principal); R42 Dizziness and giddiness; R10.13 Epigastric pain; Z88.2 Allergy status to sulfonamides; Z88.8 Allergy status to other drugs, medicaments and biological substances; Z79.899 Other long term (current) drug therapy
CPT/HCPCS: 36415; 80053; 82962; 83690; 84443; 84484; 85025; 93005; 96360; 99285; J7120; 99283